=== PATIENT | male | born 1940 | race Caucasian/White ===

== ENCOUNTER 2016-07-25 13:11 | Inpatient (IN) | payer OTHER ==
[~2016-07-25] VITALS: Ht 193 cm; Wt 58.7 kg
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
--- NOTE | 2016-07-25 16:43 | ED ORDER SUMMARY ---
..... Patient: SANA LITTLE OrderSheet [facility] VisitID: [id number] [address] [place] [address] 76y, M Registration Date/Time: 07/25/2016 ORDER SHEET Weight: 59.8 kg (stated) Allergies: anibuse GENERAL ORDERS: Foot 3V Left Urgent (14:27 07/25/2016 Kori GUAMAN) (Ack 14:31 PWeiler ER Tech1) (15:09 LWhalen R.N.) CBC w Diff Urgent (14:27 07/25/2016 Kori GUAMAN) (Ack 14:31 PWeiler ER Tech1) (15:09 LWhalen R.N.) CMP Urgent (14:27 07/25/2016 Kori GUAMAN) (Ack 14:31 PWeiler ER Tech1) (15:09 LWhalen R.N.) Lactate, Serum Urgent (14:27 07/25/2016 Kori GUAMAN) (Ack 14:31 PWeiler ER Tech1) (15:09 LWhalen R.N.) Blood Culture (No) (N/A) Urgent (15:32 07/25/2016 Kori GUAMAN) (Ack 15:37 PWeiler ER Tech1) (16:14 LWhalen R.N.) Sed Rate Urgent (16:51 07/25/2016 Kori GUAMAN) (Ack 16:57 PWeiler ER Tech1) (18:06 LWhalen R.N.) PCT (Procalcitonin) Urgent (16:51 07/25/2016 Kori GUAMAN) (Ack 16:57 PWeiler ER Tech1) (18:06 LWhalen R.N.) CRP Urgent (16:51 07/25/2016 Kori GUAMAN) (Ack 16:57 PWeiler ER Tech1) (18:06 LWhalen R.N.) MEDICATION ORDERS: IV FLUIDS: IV NS : initial bolus 1000 mL (1000 mL/hr), then none - (NOW) (14:27 07/25/2016 Kori GUAMAN) (15:10 LWhalen R.N.) Dilaudid IV 1 mg (HIGH ALERT MEDICATION, NOW) (15:06 07/25/2016 Kori GUAMAN) (15:10 Hector R.N.) Ertapenem IV 1 gm (NOW) (15:38 07/25/2016 Kori GUAMAN) (17:28 LWmichael R.N.) Vancomycin IV 1.5 gm/500 mL (NOW) (15:38 07/25/2016 Kori GUAMAN) (17:04 LWmichael R.N.) Clindamycin IV 900 mg/50mL (NOW) (15:39 07/25/2016 Kori GUAMAN) (16:07 LWmichael R.N.) ORDER SHEET NOTES: [Electronically signed by Harsha Lepe R.N. (10:09 07/26/2016)] [Electronically signed by Tona Kc MD (22:47 07/28/2016)] [Electronically locked/signed by Harsha Lepe R.N. (10:07/26/2016)]
--- NOTE | 2016-07-25 16:43 | ED CLINICAL REPORT ---
Clinical Report - Physicians/Mid Levels [facility] [address] [place] [address] 07/25/2016 13:14 Patient: SANA LITTLE Time Seen: 13:27. Arrived- By private vehicle. Historian- patient. HISTORY OF PRESENT ILLNESS Chief Complaint: LOWER EXTREMITY PAIN and ; PROBLEM IN THE LEFT FOOT. Not relieved by anything- worsened by standing and walking. This started months ago and is still present. Severity is described as being severe. The quality is noted to be (Patient has noticed redness of his toes in general but discoloration in particular of the fourth left toe.). No radiation. Symptoms located in the area of the left foot. The patient has had redness and swelling. He has had difficulty walking. No bladder dysfunction, bowel dysfunction or motor loss. Sensory loss (chronically). ( Patient states that he used to live here; however he moved to [place] to be near his daughter after being diagnosed with cancer. 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 Patient's brother states he placed the patient's primary source of cancers in the lung. Patient was in an assisted living facility and [place]; however he was told he was dying and patient decided to come back to [facility] at that point in time. Patient states that at some point he did do chemotherapy for throat cancer. However he is not currently receiving any treatment for cancer. Patient denies fevers or other symptoms of acute illness.). Patient notes the possibility of an injury (the patient states he does not have good sensation in his feet and that he does not really think he injured himself. Patient is not sure if he had an injury to his left fourth toe the suspects that this may be the case.). Similar symptoms previously: None. Recent medical care: Not recently seen/assessed. REVIEW OF SYSTEMS No cough, chest pain, difficulty breathing, fever or skin rash. No enlarged lymph nodes, neck pain, back pain, headache or blurred vision. No sore throat, abdominal pain, vomiting, diarrhea or black stools. No difficulty with urination or bloody stools. All systems otherwise negative, except as recorded above. PAST HISTORY Problems: Alcohol Intoxication. Depression. Arthritis. Dental Caries. Prostate Cancer. Hypertension. Asthma. Emphysema. Additional Surgeries: Hip Surgery. L arm. Nephrectomy. Medications: OxyCODONE HCl Oral 10 mg, as needed. Morphine Sulfate 15mg extended release. Omeprazole Oral. Levothyroxine Sodium Oral. Montelukast Sodium Oral. Tamsulosin HCl Oral. Allergies: anibuse . SOCIAL HISTORY Smoker- current status unknown. Alcohol use. No drug use. ADDITIONAL NOTES The nursing notes have been reviewed. PHYSICAL EXAM Vital Signs: 07/25/2016 13:34 BP: 126/62. HR: 84. RR: 18. O2 saturation: 100%. Temp: 98.4 F. Have been reviewed. Appearance: Alert. Oriented X3. No acute distress. (Patient appears very thin.). Eyes: Pupils equal, round and reactive to light. Eyes normal inspection. ENT: Nose normal. Neck: Normal inspection. Neck supple. CVS: Normal heart rate and rhythm. Heart sounds normal. Respiratory: No respiratory distress. Breath sounds normal. Abdomen: Soft and nontender. Back: Normal inspection. No tenderness. Skin: Skin intact. Skin warm and dry. Normal skin turgor. Extremities: Left foot. (The patient has general erythema of all of his toes. His fourth toe is gangrenous appearing. It is edematous and has a bluish purple discoloration. The medial aspect is completely eroded and draining.). Extremities otherwise negative. Neuro: No motor deficit. No sensory deficit. (patient is grossly oriented.). LABS, X-RAYS, AND EKG Lt Foot X-ray: No fracture. Normal alignment. No bony lesion, air in the soft tissue or foreign body. Soft tissues normal. Joint spaces normal. Views: 3 view foot series. Technique: good. The X-rays were independently viewed by me and interpreted contemporaneously by me. Prior films were not available for comparison. Laboratory Tests: CBC w Diff: (RIKA: 07/25/2016 15:05) ( MsgRcvd 07/25/2016 15:36) Final results Test Result Flag Units (Reference) WHITE BLOOD COUNT 6.9 K/uL (4.5-11.5) RED BLOOD COUNT 3.14 L M/uL (4.50-5.90) HEMOGLOBIN 9.1 L gm/dL (13.5-17.5) HEMATOCRIT 27.4 L % (41.0-53.0) MEAN CELL VOLUME 87 fL (80-100) MEAN CORPUSCULAR HGB 29 pg (26-34) MEAN CORPUSCULAR HGB CONC 33 g/dL (31-37) RED CELL DISTRIBUTION WIDTH 21.2 H % (11.6-14.8) PLATELET COUNT 232 K/uL (150-400) NEUTROPHIL % 80.8 H % (50-75) LYMPH % 10.2 L % (25-40) MONO % 7.8 % (3-14) EOSINOPHIL % 0.2 % (0-4) BASOPHIL % 1.0 % (0-2) Lactate, Serum: (RIKA: 07/25/2016 15:05) ( ArgRcvd 07/25/2016 15:45) Final results Test Result Flag Units (Reference) LACTIC ACID 1.3 mmol/L (0.4-2.0) CMP: (RIKA: 07/25/2016 15:05) ( MsgRcvd 07/25/2016 15:54) Final results Test Result Flag Units (Reference) GLUCOSE 93 mg/dL (70-110) BUN 12 mg/dL (7-18) CREATININE 0.8 mg/dL (0.6-1.3) Estimated GFR >60 mL/min Estimated GFR- >60 mL/min Note: Persistent reduction over 3 months in eGFR<60 mL/min/1.73 m2 defines CKD. Patients with eGFR values>=60 mL/min/1.73 m2 may also have CKD if evidence ofpersistent proteinuria. Additional information may be foundat www.kidney.org. SODIUM 134 L mmol/L (136-145) POTASSIUM 4.2 mmol/L (3.5-5.1) CHLORIDE 98 mmol/L (98-107) CARBON DIOXIDE 26 mmol/L (21-32) CALCIUM 8.9 mg/dL (8.5-10.1) TOTAL PROTEIN 7.8 g/dL (6.4-8.2) ALBUMIN 3.1 L g/dL (3.3-5.0) BILIRUBIN, TOTAL 0.4 mg/dL (0.0-1.0) ALKALINE PHOSPHATASE 87 U/L (46-116) AST (SGOT) 33 U/L (15-37) ALT (SGPT) 9 L U/L (12-78) . Pulse Oximetry: 07/25/2016 13:34 O2 saturation: 100%. (FIO2 - room air). Interpretation: normal. PROGRESS AND PROCEDURES Course of Care: Patient was evaluated by myself in the emergency department. I did feel the patient should be treated with antibiotics for his left foot cellulitis as well as have a surgical consult for his gangrenous-appearing toe. Lab studies were performed an x-ray of the foot was also done, which was unremarkable. I did feel the patient should be admitted to the hospital and this was arranged. Discussed case with on-call health care provider, (Belinda: will consult on pt, but requests hospitalist admission.). Reviewed test results and need for additional work-up. Agreed upon treatment plan. Health care provider will see patient in hospital. Discussed case with hospitalist, (Paz:). Reviewed test results and need for additional work-up. Agreed upon treatment plan and decision to admit. Health care provider will see patient in ED. Patient and family counseled in person regarding the patient's serious condition, test results, diagnosis and need for admission. Concerns were addressed. Old medical records reviewed. Disposition: Admitted to Acute Care. Condition: stable and serious. CLINICAL IMPRESSION Cellulitis of the left foot, left great toe, left 2nd toe, left 3rd toe, left 4th toe and left 5th toe. (Gangrene, L 4th toe.). (Electronically signed by Tona Kc MD 07/28/2016 22:47)
--- NOTE | 2016-07-25 16:43 | ED ORDER SUMMARY ---
..... Patient: SANA LITTLE OrderSheet [facility] VisitID: [id number] [address] [place] [address] 76y, M Registration Date/Time: 07/25/2016 ORDER SHEET Weight: 59.8 kg (stated) Allergies: anibuse GENERAL ORDERS: Foot 3V Left Urgent (14:27 07/25/2016 Kori GUAMAN) (Ack 14:31 PWeiler ER Tech1) (15:09 LWhalen R.N.) CBC w Diff Urgent (14:27 07/25/2016 Kori GUAMAN) (Ack 14:31 PWeiler ER Tech1) (15:09 LWhalen R.N.) CMP Urgent (14:27 07/25/2016 Kori GUAMAN) (Ack 14:31 PWeiler ER Tech1) (15:09 LWhalen R.N.) Lactate, Serum Urgent (14:27 07/25/2016 Kori GUAMAN) (Ack 14:31 PWeiler ER Tech1) (15:09 LWhalen R.N.) Blood Culture (No) (N/A) Urgent (15:32 07/25/2016 Kori GUAMAN) (Ack 15:37 PWeiler ER Tech1) (16:14 LWhalen R.N.) Sed Rate Urgent (16:51 07/25/2016 Kori GUAMAN) (Ack 16:57 PWeiler ER Tech1) (18:06 LWhalen R.N.) PCT (Procalcitonin) Urgent (16:51 07/25/2016 Kori GUAMAN) (Ack 16:57 PWeiler ER Tech1) (18:06 LWhalen R.N.) CRP Urgent (16:51 07/25/2016 Kori GUAMAN) (Ack 16:57 PWeiler ER Tech1) (18:06 LWhalen R.N.) MEDICATION ORDERS: IV FLUIDS: IV NS : initial bolus 1000 mL (1000 mL/hr), then none - (NOW) (14:27 07/25/2016 Kori GUAMAN) (15:10 LWhalen R.N.) Dilaudid IV 1 mg (HIGH ALERT MEDICATION, NOW) (15:06 07/25/2016 Kori GUAMAN) (15:10 Hector R.N.) Ertapenem IV 1 gm (NOW) (15:38 07/25/2016 Kori GUAMAN) (17:28 LWmichael R.N.) Vancomycin IV 1.5 gm/500 mL (NOW) (15:38 07/25/2016 Kori GUAMAN) (17:04 LWmichael R.N.) Clindamycin IV 900 mg/50mL (NOW) (15:39 07/25/2016 Kori GUAMAN) (16:07 LWmichael R.N.) ORDER SHEET NOTES: [Electronically signed by Harsha Lepe R.N. (10:09 07/26/2016)] [Electronically signed by Tona Kc MD (22:47 07/28/2016)] [Electronically locked/signed by Harsha Lepe R.N. (10:07/26/2016)]
--- NOTE | 2016-07-25 17:00 | DIAGNOSTIC IMAGING REPORT ---
PROCEDURE: XR FOOT 3 VIEWS - LEFT INDICATION: GANGRENE TECHNIQUE: Three views. COMPARISON: None. FINDINGS: Severe osteopenia. There is soft tissue swelling of the fourth toe but no definite bony destruction. Apparent laceration of the second toe and distally. Hardware projects over the ankle. IMPRESSION: 1. Severe osteopenia 2. Left fourth toe soft tissue swelling but no definite evidence of osteomyelitis 3. Laceration of the left second toe distally
--- NOTE | 2016-07-25 17:54 | Progress Note ---
Subjective General Admission History and Physical Examination Patient Name: Portia Griffith Admission Date: July 25, 2016 Primary Care Provider: None Attending Physician: Hebert Mullen M.D. Admitting Physician: Hebert Mullen M.D. Code Status: FULL CODE Room: [facility] Status: , Inpatient SUBJECTIVE Historian: Patient Reliability: Poor Chief Complaint: Left foot pain, swelling, redness History of Present Illness: The patient is a 76-year-old white male with a significant past medical history of renal cell carcinoma status post left nephrectomy, lung CA, throat CA , COPD, hypothyroidism, coronary disease status post myocardial infarction, who presented to [facility] emergency department on the day of admission secondary to complaints of left foot pain in swelling redness of one month duration. [facility] ER evaluation was consistent with cellulitis of left foot with necrotic toe. Secondary to the above, the patient was admitted by Hebert Mullen M.D. for further evaluation and treatment. PAST MEDICAL HISTORY Illnesses: 1. Lung carcinoma 2. Renal cell carcinoma status post left nephrectomy 3. RESEARCH HYDRAULIC ENGINEER neoplasm-status post excision 2015 4. Throat/ENT carcinoma-status post radiation therapy 5. COPD 6. Coronary artery disease-status post myocardial infarction 7. Hypothyroidism 8. Chronic pain 9. Degenerative joint disease Allergies: 1. Antibiotic-type unknown Medications: 1. Flomax 0.4 mg by mouth daily 2. Singular 10 mg by mouth daily 3. Synthroid dosage unknown one by mouth daily 4. Prilosec 20 mg 1 by mouth daily 5. Oxycodone 10 mg 1 by mouth 4 times a day when necessary pain 6. MS Contin 15 mg by mouth twice a day Surgery: 1. Bilateral hip replacement 2. Left leg surgery status post fracture 3. Left nephrectomy secondary to renal cell carcinoma 4. RESEARCH HYDRAULIC ENGINEER neoplasm-status post excision 2015 5. Left arm surgery Injuries: 1. Multiple leg fractures Hospitalizations: 1. For above mentioned surgery and medical problems FAMILY HISTORY Parents: 1. Father, Portia, , 42, drowning accident, 2. Mother, Jessie, , 67, myocardial infarction Siblings: 1. Male, Raymond, living, 70, diabetes mellitus 2. Female, Pura, living, 75, degenerative joint disease Children: 1. The patient has 2 male children and 2 female children living. One female child secondary to suicide/drowning Other significant family history: None SOCIAL HISTORY 1. Marital Status: 2. Bahai: None 3. Education: Fifth grade elementary 4. 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 Occupational health exposures: None HABITS 1. Tobacco: 63 pack years-cigarettes, continues to smoke one half pack per day 2. Drugs: None 3. Alcohol: 2 ounces per month 4. Caffeine: Coffee-4-6 cups per day, soft drinks 2-3 cans per day HEALTH SUPERVISION Item/Test 1. Colonoscopy: 2013 IMMUNIZATIONS: 1. Pneumococcal: No previous 2. Influenza: No previous 3. Tetanus: No previous ADVANCED DIRECTIVES: 1. Living well: Yes 2. POLST: No 3. Code Status: FULL CODE 4. 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 Donor card: No REVIEW OF SYSTEMS Remarkable for those things stated in the history of present illness and past medical history. Seventeen point review of system completed with the following notable findings: General: Weight loss-60 pounds over the past year, weakness, pain Eyes: Decreased visual acuity requiring corrective lenses Skin: Rash, pressure ulcerations, redness left foot with fourth toe skin ulcerations Ears: Ringing, hearing loss Mouth: Edentulous Respiratory: Shortness of breath, asthma/COPD Genitourinary: Increased urination at night, poor urinary stream Endocrine: Hypothyroidism Physical Exam Vital Signs / I&Os Blood pressure: 117/47 mmHg Heart rate: 72/minute Respiratory rate: 16/minute Temperature: 98.2 Fahrenheit orally Pulse oximetry: 100% room air General Appearance Alert, Oriented X3, Cooperative, No acute distress HEENT Atraumatic, PERRLA, EOMI, Moist mucous membranes Lungs Breath sounds equal. No wheezes. Scattered rhonchi. Neck Supple, No JVD Cardiovascular Regular rate and rhythm, Normal S1 and S2, No murmurs, gallops, rubs Abdomen Normal bowel sounds, Soft, No tenderness, No guarding, No rebound Extremities No cyanosis, No clubbing, mild edema present left foot. Erythema present distal one third left foot. Left fourth toe shows medial necrosis, bluish discoloration. No palpable pulses dorsalis pedis or posterior tibial. Pulses were not dopplerable. Skin See above. Areas of erythema left knee. Please see photo documentation Neurological Cranial nerves intact, No lateralizing signs Psych/Mental Status Mental status normal, mood depressed. LAB Results Laboratory Tests 07/25 07/25 07/25 07/25 1520 1520 1505 1505 Chemistry Plasma Sodium (136 - 145 mmol/L) 134 Plasma Potassium (3.5 - 5.1 mmol/L) 4.2 Plasma Chloride (98 - 107 mmol/L) 98 CO2 (Enzymatic) (21 - 32 mmol/L) 26 BUN (7 - 18 mg/dL) 12 Creatinine (0.6 - 1.3 mg/dL) 0.8 Est GFR ( Amer) (mL/min) >60 Est GFR (Non-Af Amer) (mL/min) >60 Glucose (70 - 110 mg/dL) 93 Lactic Acid (0.4 - 2.0 mmol/L) 1.3 Plasma Calcium (8.5 - 10.1 mg/dL) 8.9 Total Bilirubin (0.0 - 1.0 mg/dL) 0.4 AST (15 - 37 U/L) 33 ALT (12 - 78 U/L) 9 Alkaline Phosphatase (46 - 116 U/L) 87 C-Reactive Protein (0.0 - 0.9 mg/dL) 7.5 Total Protein (6.4 - 8.2 g/dL) 7.8 Albumin (3.3 - 5.0 g/dL) 3.1 Procalcitonin Pending Hematology WBC (4.5 - 11.5 K/uL) 6.9 RBC (4.50 - 5.90 M/uL) 3.14 Hgb (13.5 - 17.5 gm/dL) 9.1 Hct (41.0 - 53.0 %) 27.4 MCV (80 - 100 fL) 87 MCH (26 - 34 pg) 29 RDW (11.6 - 14.8 %) 21.2 Neut % (Auto) (50 - 75 %) 80.8 Lymph % (Auto) (25 - 40 %) 10.2 Grand % (Auto) (3 - 14 %) 7.8 Eos % (Auto) (0 - 4 %) 0.2 Baso % (Auto) (0 - 2 %) 1.0 Plt Count, EDTA (150 - 400 K/uL) 232 RBC Morphology (9354 A) PLTS ADQ PUBS MCHC (31 - 37 g/dL) 33 ESR Westergren (0 - 20 mm/hr) > 140 Microbiology Date/Time Procedure - Status Source Growth 07/25 1545 Blood Culture - RECD BLOOD 07/25 1510 Blood Culture - RECD BLOOD Imaging X-Ray (L) Foot IMPRESSION: 1. Severe osteopenia 2. Left fourth toe soft tissue swelling but no definite evidence of osteomyelitis 3. Laceration of the left second toe distally Dictated by: TONO ZHAO MD D: BI;07/25/16 1700 Chest X-Ray IMPRESSION: 1. Hyperinflation. Dictated by: TONO ZHAO MD D: BI;07/25/16 2118 Assessment and Plan Problem List 1. Cellulitis Status Chronic Onset Date Unknown Plan -Patient presents with findings of cellulitis of distal left foot/toes of greater than one month duration. -Patient with necrotic left fourth toe -X-rays show no signs of osteomyelitis -Vancomycin and ertapenem -Surgical consultation obtained with Dr. Bryson Trevino. Case discussed with Dr. Trevino -Pedal pulses not palpable. Minimal monophasic flow found right foot with Doppler. -Ultrasound arterial studies/TASHA ordered bilateral lower extremities -Patient may require revascularization for wound healing. 2. COPD (chronic obstructive pulmonary disease) Status Chronic Onset Date Unknown Plan -Patient with history of COPD. -Continue Singulair -DuoNeb one via nebulizer every 6 hours -Check arterial blood gas -Encourage smoking cessation -Smoking cessation education -NicoDerm patch when necessary 3. Chronic pain Status Chronic Onset Date Unknown Plan -Patient with history of chronic pain -Disabled since age 52 -Unclear whether the patient has run out of his narcotic analgesics at this time which resulted in ER evaluation -Dilaudid when necessary -Obtain previous medical records regarding patient's pain management. 4. Hypothyroidism Status Chronic Onset Date Unknown Plan -Patient with history of hypothyroidism -Currently on thyroid replacement dosage unknown -Attempt to obtain previous medical records -TSH elevated -Synthroid 0.1 mg by mouth daily -Monitor 5. Nicotine dependence Status Chronic Onset Date Unknown Plan -Patient with long-standing history of nicotine dependence-smoking -Currently smokes one half pack cigarettes per day -NicoDerm 21 mg topically daily -Smoking cessation education -Encourage smoking abstinence post discharge 6. CAD (coronary artery disease) Status Chronic Onset Date Unknown Plan -Patient with history of coronary artery disease -States history of myocardial infarction -No recent history of chest pain -The pain previous medical records -Check electrocardiogram -Monitor -Aspirin 81 mg by mouth daily 7. Anemia Status Acute Onset Date Unknown Plan -Patient with findings of mild anemia -H&H 9.1/27.4. MCV 87 -Check iron studies, B12, folate -Check stool Hemoccult -Monitor 8. PAD (peripheral artery disease) Status Chronic Onset Date Unknown Plan -Patient with findings of PAD -Check arterial ultrasound/TASHA lower extremities -Surgical consultation 9. Necrosis of toe Plan -See above -Probable significant arterial disease -Surgical consultation Dr. Trevino Current status: Fair, unstable Anticipated discharge date: Anticipated discharge in 4-5 days Anticipated [facility] prison facility Patient care time: Time spent in chart review, patient interview, physical exam, CPOE, and care documentation: 70 minutes Visit to patient today: 2 Complexity of care: High DVT prophylaxis: Heparin 5000 units subcutaneous every 8 hours GI prophylaxis: Protonix 40 mg by mouth daily Initial patient evaluation: Emergency department Advance care plan: Patient wishes to be placed on FULL CODE STATUS. Advanced care plan documented. See advance care note. The patient gives a history of multiple neoplasms in the past. History is schedule regarding previous workup and treatment of these neoplasms. We'll attempt to obtain records in a.m. from previous medical facilities/providers. E&M Codes Admission: Inpt-High/[id number]
--- NOTE | 2016-07-25 18:11 | Progress Note ---
Subjective General ADVANCED CARE PLAN History of Present Illness The patient is a 76-year-old white male with a significant past medical history of renal cell carcinoma status post left nephrectomy, lung CA, throat CA , COPD, hypothyroidism, coronary disease status post myocardial infarction, PAD who presented to [facility] emergency department on the day of admission secondary to complaints of left foot pain in swelling redness of one month duration. [facility] ER evaluation was consistent with cellulitis of left foot with necrotic fourth toe. Secondary to the above, the patient was admitted by Hebert Mullen M.D. for further evaluation and treatment. For other history present illness, past medical history, family history, social history, review of systems, and admission physical examination please see the patient's history and physical examination and ER visit note in the patient's medical record. A discussion was undertaken with the patient regarding previous advance care arrangements/decisions. The following advanced directives were noted by the patient and discussed with me at the time of admission. ADVANCED DIRECTIVES: 1. Living well: Yes 2. POLST: No 3. CODE STATUS: FULL CODE 4. 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 Donor card: No The patient has expressed interest in pursuing full resuscitative efforts during his hospital stay should he develop cardiopulmonary arrest. He wishes to undergo full respiratory support in the event of respiratory distress. The patient's wishes were documented in the chart and orders regarding the patient's wishes entered into the [employer] CPOE system. The "Advance Care Plan Document" was not distributed to patient to discuss with his family. Less than 30 minutes was spent in performing the above tasks and documentation of the patient's advanced care plan.
--- NOTE | 2016-07-25 18:11 | Progress Note ---
Subjective General ADVANCED CARE PLAN History of Present Illness The patient is a 76-year-old white male with a significant past medical history of renal cell carcinoma status post left nephrectomy, lung CA, throat CA , COPD, hypothyroidism, coronary disease status post myocardial infarction, PAD who presented to [facility] emergency department on the day of admission secondary to complaints of left foot pain in swelling redness of one month duration. [facility] ER evaluation was consistent with cellulitis of left foot with necrotic fourth toe. Secondary to the above, the patient was admitted by Hebert Mullen M.D. for further evaluation and treatment. For other history present illness, past medical history, family history, social history, review of systems, and admission physical examination please see the patient's history and physical examination and ER visit note in the patient's medical record. A discussion was undertaken with the patient regarding previous advance care arrangements/decisions. The following advanced directives were noted by the patient and discussed with me at the time of admission. ADVANCED DIRECTIVES: 1. Living well: Yes 2. POLST: No 3. CODE STATUS: FULL CODE 4. 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 Donor card: No The patient has expressed interest in pursuing full resuscitative efforts during his hospital stay should he develop cardiopulmonary arrest. He wishes to undergo full respiratory support in the event of respiratory distress. The patient's wishes were documented in the chart and orders regarding the patient's wishes entered into the [employer] CPOE system. The "Advance Care Plan Document" was not distributed to patient to discuss with his family. Less than 30 minutes was spent in performing the above tasks and documentation of the patient's advanced care plan.
[2016-07-25 18:52] VITALS: BP 117/47
--- NOTE | 2016-07-25 19:12 | NUR ---
PT ADMITTED TO ROOM 211 VIA THE ED. HE WAS ABLE TO SCOOT HIMSELF FROM THE GURNEY TO THE BED. IV IS RUNNING IN THE RFA. HE IS HUNGRY SO HE IS EATING A SANDWICH, RADIOLOGY HERE TO DO CXR, RT HERE TO DO ABG. FULL PHYSICAL ASSESSMENT DEFERRED TO ONCOMING RN. RATES PAIN 9/10 IN L FOOT, MEDICATED WITH 1MG IV DILAUDID PER ORDER. BED IN LOWEST POSITION, CALL LIGHT WITHIN REACH.
--- NOTE | 2016-07-25 21:18 | DIAGNOSTIC IMAGING REPORT ---
PROCEDURE: XR CHEST 1 VIEW INDICATION: COPD, Lung CA TECHNIQUE: Portable AP view 06:21 p.m. COMPARISON: None. FINDINGS: Hyperinflation. Heart and mediastinum are normal. Thorax is normal. IMPRESSION: 1. Hyperinflation.
[2016-07-25 23:14] VITALS: BP 122/69
[2016-07-26 03:12] VITALS: BP 127/51
--- NOTE | 2016-07-26 03:32 | NUR ---
Pt has had pain 9-10/10 to L foot. Dilaudid is effective. Photos taken of L foot, coccyx, & wounds to L knee. Pt is emaciated. Turning q2h due to bony prominences & high risk for pressure ulcers. Waffle mattress on & waffle boots placed. Hasn't had BM in 7 days. Started on bowel protocol. Given prune juice. Taking PO well. Has had some snacks. Plan is arterial US of BLE today.
--- NOTE | 2016-07-26 05:34 | NUR ---
Mepilex applied to sacrum/coccyx for pressure ulcer prevention.
[2016-07-26 06:55] VITALS: BP 121/66
--- NOTE | 2016-07-26 07:56 | NUR ---
d/w Dr. Mullen that pt had c/o "needing to pee" & "needing pee pill" Realized Flomax start date defaulted to tonight vs last hannah & so pt missed dose. Pharm retimed to give 1st dose now (ok per Dr. Mullen). Bladder scan showed 574, but shortly after pt voided 200. Dr. Mullen aware & will monitor for now. Report to day RN with above issue reported to monitor.
--- NOTE | 2016-07-26 08:48 | NUR ---
In to see patient with Dr. Trevino, pt very cachectic, with height of 6'4" and 122 pounds. Pt with what looks like a healed pressure injury to the coccyx, it is a dry, scab area now. Pt also with dry scabs to left knee area x2, and necrotic appearing 4th toe on the left foot. No palpable pulses to bilat feet. Dr. Trevino able to palpate groin pulses. Pt awaiting venous doppler/TASHA testing today, per Dr. Trevino will await results of that and proceed from there, Pt states has been smoking but currently trying to quit. Received orders to try and place a silver alginate dressing over the 4th toe, and foam on areas on knees, per patient he is unable to tolerate anyone touching the toe, and does not want a dressing placed at this time. Pt a very high risk for pressure injury, Has a WAFFLE mattress in place, WAFFLE boots attempted, but patient did not tolerate and were dc'd, so now pts heels, which have barely blanchable redness are being elevated by folding WAFFLE mattress under and propping up with wedge as well. [place] guard in place to offload blankets from foot, as patient is unable to tolerate and pressure at all . Foam dressings placed on scabs on left knee, Boder sacrum foam placed on coccyx, vigilent repositioning taking place, and awaiting nutrition consult. Pt incontinent as well, and using barrier cloths with 3.6% Dimethacone for protection for gently cleaning afterwards, pt also on disposable absorbant pad and briefs being used only as necessary. Will continue to monitor closely.
--- NOTE | 2016-07-26 09:14 | NUR ---
Vancomycin per Pharmacy S/O: Pt with cellulitis and necrotic 4th toe is ordered Vancomycin to be dosed by pharmacy. Pt is also s/p left nephrectomy. Ht: 76 inches Wt: 55.8 Kg Scr: 0.7 Est CrCl: 61ml/min A: Estimated Vancomycin levels of 27/12.5 on Vanco 750 mg Q 12 H P: Draw trough 0830 on 07/27/16
--- NOTE | 2016-07-26 10:00 | NUR ---
DR VARELA TO ASSESS PT AND NECROTIC TOE. STARTED BOWEL PROTOCOL. PT STATED HE NOT HAD A BM IN 1 WEEK. WAITING FOR ARTERIAL US OF HIS LLE. WCTM.
--- NOTE | 2016-07-26 10:40 | CONSULTATION REPORT ---
DATE OF CONSULTATION: 07/26/2016 CHIEF COMPLAINT: 1. Left foot pain and redness. HISTORY OF PRESENT ILLNESS: The patient is a 76-year-old man with a painful left foot associated with recent redness. This patient has had cellulitis in the left foot and was seen in the emergency department. He has had pain and swelling and redness during the last month or so, which has been of a more gradual onset. The patient is currently a smoker but has not had previous known peripheral vascular disease on a diagnosis. He does have coronary artery disease. MEDICAL/SURGICAL HISTORY: Past medical history of lung carcinoma, throat carcinoma, renal cell with left nephrectomy, central nervous system cancer excised in 2016, COPD, coronary artery disease, [place], hypothyroidism, DJD, chronic pain. Past surgeries are bilateral hip replacements, left leg ORIF, left nephrectomy, craniotomy in 2016 and left arm surgery. MEDICATIONS: 1. Flomax 0.4 mg daily. 2. Singulair 10 mg daily. 3. Synthroid, dose unknown. 4. Oxycodone 10 mg q.i.d. p.r.n. 5. MS Contin 15 mg b.i.d. ALLERGIES: 1. NONE DESCRIBED OTHER THAN ANTABUSE. SOCIAL HISTORY: The patient is . He is disabled and nonambulatory. 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 The patient smokes about 1/2 pack per day and has smoked his whole life. He does not take alcohol. FAMILY HISTORY: Mother at 67 from [place]. Father of drowning at age 42. He has a brother with diabetes. REVIEW OF SYSTEMS: A multipoint review of systems was obtained by Dr. Mullen using questionnaire and through his own questioning. This was reviewed. He has had a generalized weight loss of about 60 pounds over the last year, associated with generalized weakness and pain. He has been altered vision, various rashes and ulcerations, especially ulcerations on his left foot, hearing loss, loss of teeth, chronic shortness of breath and increased urinary frequency. PHYSICAL EXAMINATION: GENERAL: He is alert and cooperative to examination. He responds appropriately to questioning. He appears emaciated, cachectic and chronically bedridden. EXTREMITIES: His lower extremities are atrophic with marked muscle loss in the thighs and lower legs. HEENT: His ears and nose demonstrate no gross external lesions. His eyes are equal. He is anicteric. NECK: Without palpable masses or thyromegaly. I did not hear any bruits. CHEST: Clear to auscultation. HEART: Regular, without murmur or gallop. ABDOMEN: Reveals no localized tenderness. LOWER EXTREMITY: Reveals a purple left fourth toe as well as a red forefoot. The foot is cool from on the lower half, but is warmer around by the heel. The right foot does not demonstrate any acute changes, though it also has no pulses. Palpation reveals no palpable pedal pulses, however, the groin pulses are easily palpable. Radial pulses are also palpable. IMPRESSION: 1. Ischemic necrosis of left foot. 2. Nonambulatory patient with marked cachexia and weight loss. 3. Chronic cigarette dependency. 4. Multiple medical problems and numerous previous malignancies. PLAN: I requested a lower extremity noninvasive Doppler exam. It appears that this patient has ischemic gangrene of the toe and is unlikely to benefit from aggressive limb salvage as he is nonambulatory. Note also on examination his thighs are contracted and will not straighten out past about 45 degrees and his knees are also on flexion contracture. In this situation an above-knee amputation may be the only reasonable treatment, though, in the meantime, we will use some bacterial inhibiting Silver based dressings and some IV antibiotics to reduce the cellulitis and await further vascular studies. In the event that he has a very easy fixable lesion such as focal superficial femoral artery stenosis, this maybe worth an endovascular intervention, but aggressive limb salvage is not reasonable under the circumstances. I also talked to the patient about his smoking habits and made him aware that smoking and peripheral vascular disease are incompatible with prolonged survival.
[2016-07-26 10:53] VITALS: BP 119/55
--- NOTE | 2016-07-26 11:15 | NUR ---
per RN pt not appropriate for PT evaluation today. Will ck bk 5-2
--- NOTE | 2016-07-26 11:37 | NUR ---
NUTRITION ASSESSMENT: S: Pt admitted with dx/o necrosis left foot. PMH includes: lung and throat cancer, renal cancer with left nefphrectomy, central nervous system cancer, COPD, CAD, [place], hypothyroidism, DJD, chronic pain, hip replacements, craniotomy in 2016. Pt appears emaciated, per MD notes he is bedridden with marked muscle loss. Spoke with MD, suggested d/c cardiac diet, MD would like to leave him on this diet 2/2 dx/hx, but agreeable to boost between meals, desean cortes q meal.
--- NOTE | 2016-07-26 12:32 | Progress Note ---
Subjective General still has pain in left foot but controlled, no fever but has chills, no dyspnea, no chest pain, patient is aware of his infection in left foot Physical Exam General Appearance No acute distress Lungs Normal exam (decreased air exchange in base) Cardiovascular Normal S1 and S2 Extremities erythema in lef foot with necrosis in left first toe LAB Results Laboratory Tests 07/26 07/25 07/25 0510 1804 1535 Blood Gas Sample Site RB Total CO2 (24.0 - 30.0 mmol/L) 25.1 ABG pH (7.35 - 7.45) 7.45 ABG pCO2 at Pt Temp (35 - 45 mmHg) 34.5 ABG pO2 at Pt Temp (60.0 - 80.0 mmHg) 98.8 ABG HCO3 (20.0 - 26.0 mmol/L) 24.0 ABG O2 Sat Calc/Meaghan (95.1 - 100.0 %) 98.8 ABG Base Excess (-6.0 - -6.0 mmol/L) 0.0 ABG Reduced Hgb (%) 1.2 ABG Carboxyhemoglobin (0.5 - 1.5 %) 2.0 ABG Methemoglobin (0.4 - 1.5 %) 0.0 Som Test NO Other Total Hgb (14.0 - 18.0 g/dL) 8.2 A-a O2 Gradient (7.0 - 14.0 mmHg) 12.6 Hgb O2 Saturation (95.0 - 100.0 %) 96.8 Temperature (C) 37 O2 Liters/Min (0 - 20 L/MIN) 0 Vent Mode RA FiO2 (20 - 101 %) 21 Chemistry Plasma Sodium (136 - 145 mmol/L) 138 Plasma Potassium (3.5 - 5.1 mmol/L) 4.2 Plasma Chloride (98 - 107 mmol/L) 104 CO2 (Enzymatic) (21 - 32 mmol/L) 25 BUN (7 - 18 mg/dL) 12 Creatinine (0.6 - 1.3 mg/dL) 0.7 Est GFR ( Amer) (mL/min) >60 Est GFR (Non-Af Amer) (mL/min) >60 Glucose (70 - 110 mg/dL) 93 Plasma Calcium (8.5 - 10.1 mg/dL) 8.1 TSH 3rd Generation (0.30 - 3.74 uIU/mL) 9.052 Hematology WBC (4.5 - 11.5 K/uL) 5.7 RBC (4.50 - 5.90 M/uL) 3.05 Hgb (13.5 - 17.5 gm/dL) 8.6 Hct (41.0 - 53.0 %) 26.4 MCV (80 - 100 fL) 87 MCH (26 - 34 pg) 28 RDW (11.6 - 14.8 %) 21.2 Neut % (Auto) (50 - 75 %) 89.6 Lymph % (Auto) (25 - 40 %) 5.0 [place] % (Auto) (3 - 14 %) 1.9 Eos % (Auto) (0 - 4 %) 3.2 Baso % (Auto) (0 - 2 %) 0.3 Plt Count, EDTA (150 - 400 K/uL) 209 RBC Morphology (76742 A) HYPOCHROMIA +2 PUBS MCHC (31 - 37 g/dL) 33 07/25 07/25 07/25 07/25 1535 1520 1520 1510 Chemistry Iron (35 - 150 ug/dL) 29 TIBC (260 - 445 ug/dL) 253 Iron Saturation (15 - 50 %) 11 C-Reactive Protein (0.0 - 0.9 mg/dL) 7.5 B-Natriuretic Peptide (5 - 100 pg/ml) 171 Procalcitonin (0 - 0.5 ng/mL) <0.5 Hematology ESR [place] (0 - 20 mm/hr) > 140 Urines Urine Color YELLOW Urine Appearance CLEAR Urine pH (5.0 - 8.0) 6.5 Ur Specific [place] (1.010 - 1.030) 1.010 Urine Protein (NEGATIVE) NEGATIVE Urine Ketones (NEGATIVE) NEGATIVE Urine Blood (NEGATIVE) 1+ Urine Nitrite (NEGATIVE) NEGATIVE Urine Bilirubin (NEGATIVE) NEGATIVE Urine Urobilinogen (0.2 - 1.0 EU/dL) 0.2 Ur Leukocyte Esterase (NEGATIVE) NEGATIVE Urine RBC (0 - 1 rbc/hpf) 10-25 Urine WBC (0 - 1 wbc/hpf) 1-3 Ur Epithelial Cells (0 - 5 EPI/hpf) 0-1 Urine Bacteria (NONE SEEN) NONE SEEN Urine Glucose (NEGATIVE) NEGATIVE Urine Comment CULT NOT INDICATED 07/25 07/25 07/25 1510 1505 1505 Chemistry Plasma Sodium (136 - 145 mmol/L) 134 Plasma Potassium (3.5 - 5.1 mmol/L) 4.2 Plasma Chloride (98 - 107 mmol/L) 98 CO2 (Enzymatic) (21 - 32 mmol/L) 26 BUN (7 - 18 mg/dL) 12 Creatinine (0.6 - 1.3 mg/dL) 0.8 Est GFR ( Amer) (mL/min) >60 Est GFR (Non-Af Amer) (mL/min) >60 Glucose (70 - 110 mg/dL) 93 Lactic Acid (0.4 - 2.0 mmol/L) 1.3 Plasma Calcium (8.5 - 10.1 mg/dL) 8.9 Total Bilirubin (0.0 - 1.0 mg/dL) 0.4 AST (15 - 37 U/L) 33 ALT (12 - 78 U/L) 9 Alkaline Phosphatase (46 - 116 U/L) 87 Total Protein (6.4 - 8.2 g/dL) 7.8 Albumin (3.3 - 5.0 g/dL) 3.1 Vitamin B12 (211 - 946 pg/mL) 567 Folate (>3.0 ng/mL) 7.8 Coagulation INR (0.8 - 1.2) 0.9 APTT (24 - 34 SECONDS) 60 Hematology WBC (4.5 - 11.5 K/uL) 6.9 RBC (4.50 - 5.90 M/uL) 3.14 Hgb (13.5 - 17.5 gm/dL) 9.1 Hct (41.0 - 53.0 %) 27.4 MCV (80 - 100 fL) 87 MCH (26 - 34 pg) 29 RDW (11.6 - 14.8 %) 21.2 Neut % (Auto) (50 - 75 %) 80.8 Lymph % (Auto) (25 - 40 %) 10.2 [place] % (Auto) (3 - 14 %) 7.8 Eos % (Auto) (0 - 4 %) 0.2 Baso % (Auto) (0 - 2 %) 1.0 Plt Count, EDTA (150 - 400 K/uL) 232 RBC Morphology (9354 A) PLTS ADQ PUBS MCHC (31 - 37 g/dL) 33 Microbiology Date/Time Procedure - Status Source Growth 07/25 1545 Blood Culture - RECD BLOOD 07/25 1510 Blood Culture - RECD BLOOD Assessment and Plan Problem List 1. Cellulitis Status Chronic Onset Date Unknown Plan continue Louann and Samantha, had duppler of lower extr, surgery on consult 2. PAD (peripheral artery disease) Status Chronic Onset Date Unknown Plan as above 3. COPD (chronic obstructive pulmonary disease) Status Chronic Onset Date Unknown Plan stable continue current treatment 4. Chronic pain Status Chronic Onset Date Unknown Plan continue pain medication
--- NOTE | 2016-07-26 13:40 | NUR ---
Pt not able to tolerate lying on either side. Due to prior bilateral hip replacements. Position with pillows between knees and using wedges and pillows to keep pressure off coccyx and sacrum. vigilant nisha care and positioning taking place. Will continue to monitor and report to on-coming shift.
[2016-07-26 14:32] VITALS: BP 125/56
--- NOTE | 2016-07-26 16:51 | DIAGNOSTIC IMAGING REPORT ---
PROCEDURE: US ART LOWER EXT WITH TASHA-B/L INDICATION: PAD TECHNIQUE: Color Doppler duplex imaging of the lower extremity arterial system was performed bilaterally. Pre exercise ABIs were acquired. The patient was unable to exercise. COMPARISON: None. FINDINGS: RIGHT LOWER EXTREMITY: ABIs: Pre exercise posterior tibial: . Pre exercise dorsalis pedis: . VESSELS/ WAVEFORMS: Moderate calcification of the common femoral artery causing mild subjective luminal stenosis without significant distal velocity elevation. Scattered calcification throughout the superficial femoral artery, and heavy mixed calcified and noncalcified plaque in the popliteal artery causing moderate luminal stenosis. Monophasic arterial flow throughout the entire right lower extremity. Anterior tibial artery wave form proximally is blunted. RIGHT LOWER EXTREMITY PEAK SYSTOLIC VELOCITIES: External iliac: 186 cm/second. Common femoral artery: 126 cm/second. Profunda femoral artery: 102 cm/second. Proximal superficial femoral artery: 134 cm/second. Mid superficial femoral artery: 310 cm/second. Distal superficial femoral artery: 372 cm/second. Popliteal artery: 105 cm/second. Proximal posterior tibial artery: 38 cm/second. Proximal anterior tibial artery: Eight cm/second. Peroneal artery: 29 cm/second. Distal posterior tibial artery: 39 cm/second. Dorsalis pedis artery: 17 cm/second. LEFT LOWER EXTREMITY: ABIs: Pre exercise posterior tibial: . Pre exercise dorsalis pedis: . VESSELS/ WAVEFORMS: Turbulent, monophasic arterial wave form in the external iliac artery, common femoral artery, profunda femoral artery. Heavy calcification in the common and proximal superficial femoral arteries. This results in a significant velocity elevation in the mid superficial femoral artery. Distal SFA waveform is monophasic blunted. Extensive mixed calcified and noncalcified popliteal artery atherosclerosis. The left anterior tibial artery is thrombosed. There is a very blunted, barely phasic arterial flow in the peroneal and posterior tibial arteries. LEFT LOWER EXTREMITY PEAK SYSTOLIC VELOCITIES: External iliac: 200 cm/second. Common femoral artery: 181 cm/second. Profunda femoral artery: 220 cm/second. Proximal superficial femoral artery: 194 cm/second. Mid superficial femoral artery: 511 cm/second. Distal superficial femoral artery: 81 cm/second. Popliteal artery: 102 cm/second. Proximal posterior tibial artery: 30 cm/second. Proximal anterior tibial artery: Zero cm/second. Peroneal artery: 30 cm/second. Distal posterior tibial artery: Zero cm/second. Dorsalis pedis artery: 28 cm/second. IMPRESSION: 1. Thrombosed left anterior tibial artery beginning in the proximal aspect. No reconstitution of the dorsalis pedis. 2. Heavy atherosclerosis in the proximal left lower extremity with a hemodynamically significant stenosis in the proximal left superficial femoral artery. 3. Monophasic arterial flow diffusely suggests diffuse calcific atherosclerosis. 4. Extensive atherosclerosis in the popliteal artery bilaterally. No definite aneurysm. 5. Bilateral lower extremity arterial runoff is recommended for further evaluation (CT, MRI, or conventional). 5. Findings called to Dr. Mullen.
[2016-07-26 18:00] VITALS: BP 124/63
[2016-07-26 22:28] VITALS: BP 111/59
--- NOTE | 2016-07-26 23:47 | NUR ---
DID WOUND CARE TODAY ON PATIENT. CHANGED BANDAGES.
[2016-07-27 02:38] VITALS: BP 119/64
[2016-07-27 06:45] VITALS: BP 117/70
--- NOTE | 2016-07-27 09:57 | Progress Note ---
Subjective General still has pain in left leg, no fever or chills, breathing is stable, otherwise doing oK Physical Exam Vital Signs / I&Os Vital Signs Date Time Temp Pulse Resp B/P Pulse O2 O2 Flow FiO2 Ox Delivery Rate 07/27 0645 98.2 84 18 117/70 98 Room Air 07/27 0238 98.2 84 18 119/64 98 Room Air 07/26 2350 Room Air 07/26 2228 98.6 86 18 111/59 97 Room Air 07/26 1800 98.2 92 18 124/63 99 Room Air 07/26 1432 97.7 78 18 125/56 99 Room Air 07/26 1053 98.2 83 18 119/55 99 Room Air I&O 07/27 0000 07/26 1600 07/26 0800 Intake Total 605 570 479 Output Total 575 2760 754 Balance 26 580 -385 General Appearance Mild distress Lungs Normal exam (decreased air exchange all ove) Cardiovascular Normal S1 and S2 Abdomen Normal bowel sounds, Soft, No tenderness Extremities necrotic toes in left leg, tender in palpation LAB Results Laboratory Tests 07/27 07/27 0835 0505 Chemistry Plasma Sodium (136 - 145 mmol/L) 139 Plasma Potassium (3.5 - 5.1 mmol/L) 4.6 Plasma Chloride (98 - 107 mmol/L) 105 CO2 (Enzymatic) (21 - 32 mmol/L) 27 BUN (7 - 18 mg/dL) 10 Creatinine (0.6 - 1.3 mg/dL) 0.8 Est GFR ( Amer) (mL/min) >60 Est GFR (Non-Af Amer) (mL/min) >60 Glucose (70 - 110 mg/dL) 95 Plasma Calcium (8.5 - 10.1 mg/dL) 8.3 Hematology WBC (4.5 - 11.5 K/uL) 5.3 RBC (4.50 - 5.90 M/uL) 2.99 Hgb (13.5 - 17.5 gm/dL) 8.3 Hct (41.0 - 53.0 %) 25.8 MCV (80 - 100 fL) 86 MCH (26 - 34 pg) 28 RDW (11.6 - 14.8 %) 22.2 Neut % (Auto) (50 - 75 %) 82.8 Lymph % (Auto) (25 - 40 %) 7.2 [place] % (Auto) (3 - 14 %) 5.8 Eos % (Auto) (0 - 4 %) 3.8 Baso % (Auto) (0 - 2 %) 0.4 Plt Count, EDTA (150 - 400 K/uL) 228 RBC Morphology (34404 A) HYPOCHROMIA +2 PUBS MCHC (31 - 37 g/dL) 32 Toxicology Vancomycin Trough (10.0 - 20.0 ug/mL) 12.8 Assessment and Plan Problem List 1. Cellulitis Status Chronic Onset Date Unknown Plan continue Vancomysin 2. PAD (peripheral artery disease) Status Chronic Onset Date Unknown Plan Doppler study was noted, diffuse aterosclrosis and trombosis, not a candidate for Stent, might need AKA 3. COPD (chronic obstructive pulmonary disease) Status Chronic Onset Date Unknown Plan stable continue current management 4. Anemia Status Acute Onset Date Unknown Plan stable 5. Chronic pain Status Chronic Onset Date Unknown Plan on Dilaudid
--- NOTE | 2016-07-27 10:17 | NUR ---
ALERT PT WHO HAS L FOOT 4TH TOE NECROSIS. PTs SKIN IS VERY SENSITIVE TO PRESSURE. DRESSINGS ARE INTACT TO KNEES AND TO COCCYX. MEDICATED FOR PAIN L FOOT. IV INFUSING INTO LFA. PT IS NOT ABLE TO TOLERATE LYING ON L SIDE BECAUSE OF HIS LLE PAIN (PER PT). HEELS OFF LOADED PER WAFFLE MATTRESS.
--- NOTE | 2016-07-27 10:42 | NUR ---
NUTRITION FOLLOW UP NOTE: Pt diet changed to High Calorie High Protein mechanical soft with mighty shakes q meal, BOOST TID between meals, Zinc with vit C to help promote wound healing. Pt ate ~25% this am, and ~40-50% at meals yesterday (07/26), pt does accept boost shakes and ice cream as well. Per MD notes, pt may possibly need AKA? Rev'd meds and labs. Pt continues at high nutritional risk, RD to continue to follow closely.
[2016-07-27 11:33] VITALS: BP 112/66
--- NOTE | 2016-07-27 11:41 | NUR ---
pt unable to be seen d/t high census. Will ck bk 5-3
[2016-07-27 14:35] VITALS: BP 101/56
--- NOTE | 2016-07-27 16:13 | NUR ---
PT HAS BEEN REPOSITIONED WITH HEELS FLOATING. PT HAS DIFFICULTY KEEPING HEELS OFF OF BED EVEN WHEN 2 PILLOWS APPLIED AND WAFFLE MATTRESS TURNED OVER. DRESSINGS INTACT. BROTHER IS AT BEDSIDE WAITING FOR DR VARELA TO TALK TO THEM. IV IS PATENT AND PT HAS BEEN MEDICATED FOR 7/10 LLE PAIN. PT HAS BEEN VOIDING WELL PER URINAL.
--- NOTE | 2016-07-27 18:21 | NUR ---
DR VARELA ATTEMPTED TO CALL PTS BROTHER AT NUMBER LISTED ON FACE SHEET TO UPDATE HIM ON PLAN OF CARE. THERE WAS NO ANSWER AND VOICE MAILBOX WAS FULL. I WILL NOTIFY THE PT.
[2016-07-27 18:52] VITALS: BP 109/57
--- NOTE | 2016-07-27 19:58 | NUR ---
Patient was encouraged to do deep breathing exercises. He confirms that he has not moved his bowels for so many days now. He is able to reposition himself in bed and is reluctant to currently taking Acetaminophen.
[2016-07-27 22:47] VITALS: BP 101/50
--- NOTE | 2016-07-27 23:30 | NUR ---
Renewed Mepilex dressings on the L knee, R knee, both hips and the coccyx.
[2016-07-28 02:30] VITALS: BP 102/55
[2016-07-28 06:27] VITALS: BP 120/63
--- NOTE | 2016-07-28 08:48 | Progress Note ---
Subjective General Pt. has no new complaints. He reports he has not ambulated in over 5 years. Physical Exam Vital Signs / I&Os Vital Signs Date Time Temp Pulse Resp B/P Pulse O2 O2 Flow FiO2 Ox Delivery Rate 07/28 0627 98.2 72 14 120/63 96 Room Air 07/28 0230 98.2 80 13 102/55 98 Room Air 07/27 2247 98.2 80 13 101/50 98 Room Air 07/27 2012 Room Air 07/27 1852 99.0 93 18 109/57 98 / 1435 98.6 76 16 101/56 99 / 1133 98.2 82 16 112/66 98 Room Air I&O 07/27 0800 07/27 1600 07/28 0000 Intake Total 1365 1890 840 Output Total 1675 1350 570 Balance -310 540 270 General Appearance Cooperative, Pt. was sleeping but when awake conversed appropriately and seemed to understand what was being explained to him. Extremities The left foot looks similar with a gangrenous toe and ischemic forefoot. All muscles are atrophic and he has sores on his knee area. The femur is tender but stable (he reports an old fracture there) Assessment and Plan Problem List 1. PAD (peripheral artery disease) Status Chronic Onset Date Unknown 2. Necrosis of toe Plan I recommended a left AK amputation as he is not ambulatory and does not warrant vascular intervention for limb salvage. I explained his situation to him and he agrees to this procedure. I called his brother yesterday but did not reach him. I left word with the nurses to call me if he comes in to visit.
--- NOTE | 2016-07-28 09:11 | NUR ---
In to see patient with Dr. Trevino, redness somewhat decreased in left lower extremity, but 4rth toe necrotic, possibly spreading. is going to schedule left AKA for tomorrow, call placed to brother Rainer, arranged for him to be here at [address] Trevino about procedure. Assessment of patients sacrum/coccyx is lightly blanchable very erythematis, evidence of old healed pressure injury to coccyx, still intact, dry skin in area, due to extreme malnutrition and bony prominences, a large (9x9) sacrum foam dressing was placed on sacrum/coccyx. Propyhlactic foam placed on bilat hips and also on bilat knees for old abrasions. right foot heel is very erythematous, pt has refused WAFFLE boot prior, but with his great height it is difficult to keep his heels elevated. Educated patient of importance of keeping heel elevated to prevent pressure injury, and pt agreeable to placing WAFFLE BOOT again. Pt given complete bedbath and applied moisturizer, also washed hair and changed gown. Currently is have swallow eval, will continue to monitor.
--- NOTE | 2016-07-28 09:43 | NUR ---
Pt seen for a swallow evaluation d/t RN report that the pt had difficulty swallowing pills with water. Pt admitted with cellulitis of the distal foot/toes for more than one month. Pending AK amputation. Hx sig for lung cancer and throat cancer s/p radiation tx approx 7 years ago. The pt has top dentures, no bottom dentures. OME revealed dry mouth, which the pt reported is the reason he has difficulty swallowing pills. The pt could only tolerate upright positioning for approx 15 minutes d/t leg and back pain. The pt tolerated trials of soft textures and sips of water from a straw w/o overt s/s of aspiration. Reduced laryngeal excursion was felt to palpation, but swallow reflex was prompt. Pt demonstrates mild dysphagia, but d/t difficulty sitting upright for long he is at an increased risk of aspiration. REC: mechanical soft textures with added sauces and gravies for moisture and thin liquids. Only feed pt when he is positioned upright. Rec more frequent smaller meals to accommodate difficulty sitting upright. Meds whole in applesauce.
--- NOTE | 2016-07-28 09:56 | Progress Note ---
Subjective General still has pain in left foot/leg, no fever little chills, breathing fine, was not able to sleep last night, too much wakening, agreeble alie BUTTS wonders if he can get power \wheelchair after Physical Exam Vital Signs / I&Os Vital Signs Date Time Temp Pulse Resp B/P Pulse O2 O2 Flow FiO2 Ox Delivery Rate 07/28 0627 98.2 72 14 120/63 96 Room Air 07/28 0230 98.2 80 13 102/55 98 Room Air 07/27 2247 98.2 80 13 101/50 98 Room Air 07/27 2012 Room Air 07/27 1852 99.0 93 18 109/57 98 07/27 1435 98.6 76 16 101/56 99 07/27 1133 98.2 82 16 112/66 98 Room Air I&O 07/28 0000 07/27 1600 07/27 0800 Intake Total 840 1890 1365 Output Total 570 1350 1675 Balance 270 540 -310 General Appearance Mild distress Lungs Normal exam (decreased air exchange bases) Cardiovascular Regular rate and rhythm, Normal S1 and S2 Abdomen Normal bowel sounds, Soft, No tenderness Extremities necrotic 4th toe erythema LAB Results Laboratory Tests 07/28 509 Chemistry Plasma Sodium (136 - 145 mmol/L) 136 Plasma Potassium (3.5 - 5.1 mmol/L) 4.6 Plasma Chloride (98 - 107 mmol/L) 105 CO2 (Enzymatic) (21 - 32 mmol/L) 26 BUN (7 - 18 mg/dL) 10 Creatinine (0.6 - 1.3 mg/dL) 0.8 Est GFR ( Amer) (mL/min) >60 Est GFR (Non-Af Amer) (mL/min) >60 Glucose (70 - 110 mg/dL) 100 Plasma Calcium (8.5 - 10.1 mg/dL) 8.1 Hematology WBC (4.5 - 11.5 K/uL) 4.4 RBC (4.50 - 5.90 M/uL) 2.94 Hgb (13.5 - 17.5 gm/dL) 8.3 Hct (41.0 - 53.0 %) 25.5 MCV (80 - 100 fL) 87 MCH (26 - 34 pg) 28 RDW (11.6 - 14.8 %) 21.6 Neut % (Auto) (50 - 75 %) 74.9 Lymph % (Auto) (25 - 40 %) 11.2 [place] % (Auto) (3 - 14 %) 8.1 Eos % (Auto) (0 - 4 %) 5.1 Baso % (Auto) (0 - 2 %) 0.7 Plt Count, EDTA (150 - 400 K/uL) 211 RBC Morphology ANISOCYTOSIS +1 PUBS MCHC (31 - 37 g/dL) 33 Assessment and Plan Problem List 1. PAD (peripheral artery disease) Status Chronic Onset Date Unknown Plan looks like pt is agreeble to AKA 2. Cellulitis Status Chronic Onset Date Unknown Plan continue Vanco and Invanz 3. COPD (chronic obstructive pulmonary disease) Status Chronic Onset Date Unknown Plan dyspnea is controlled 4. Anemia Status Acute Onset Date Unknown Plan stable, monitoring
--- NOTE | 2016-07-28 10:51 | NUR ---
pt pending AKA. Will ck bk after s/p.
[2016-07-28 11:08] VITALS: BP 100/50
--- NOTE | 2016-07-28 11:33 | NUR ---
WOUND CARE NURSE WAS INTO SEE PT. DRESSING WERE DONE AND NEW MEPILEX APPLIED TO COCCYX AREA DUE TO ERYTHEMA. PT REPOSITIONED BUT DIFFICULT TO MAINTAIN POSITION DUE TO DISCOMFORT. SWALLOW EVAL HAS BEEN DONE AND RECOMMENDATIONS GIVEN. PT CONT TO C/O LLE PAIN AND HAS BEEN MEDICATED. HE DID WELL BEING UPRIGHT AND EATING BREAKFAST. DR VARELA WAS HERE THIS AM AND TALKED TO PT ABOUT POC. HE WILL RETURN 1245 TO TALK TO BROTHER ALSO REGARDING UPCOMING SURGICAL PLAN. PT IS AWARE HE WILL BE NPO AFTER MIDNIGHT.
--- NOTE | 2016-07-28 11:41 | NUR ---
Discussed specialty bed with Nursing Family Practice Doctor, as patients RN and I agree that patient requires one for: height 6'4", malnutrition-cachectic, intractable leg pain with any movement,Pending AKA, bed bound, prior history of pressure ulcer on coccyx. Specialty bed to be ordered, informed patients RN will continue to monitor.
--- NOTE | 2016-07-28 12:29 | NUR ---
NUTRITION FOLLOW UP NOTE: Pt was seen by [employer] today, 'mary aparicio and spoke with [employer] afer study. Pt to have soft moist foods, kitchen aware. Will continue high calorie high protein interventions in place as appropriate to help promote weight gain and healing. Wts up slightly since admit, however, could be from IVFS? Rec consider IMPACT advance recovery tid between meals for increased kcals and immunonutrition for surger. Rec order prealbumin lab and consider nutrition support to help further promote healing 2/2 pts dx/o malnurition and cachectic appearance. RD to conitinue to follow closely and avail for recommendation prn.
[2016-07-28 14:53] VITALS: BP 111/57
--- NOTE | 2016-07-28 17:06 | NUR ---
PT IS ON HIS NEW SPECIALITY BED. HE STATES IT IS COMFORTABLE. IV IS PATENT TO [facility]. CONNIE ARE D/I. NANCY AWANOT TO R FOOT.
[2016-07-28 18:20] VITALS: BP 115/54
--- NOTE | 2016-07-28 20:25 | NUR ---
Patient is well aware of the plans for tomorrow. He was reminded of being NPO post midnight and was encouraged to have snacks before then.He is now on a special pressure ulcer prevention bed.
[2016-07-28 22:07] VITALS: BP 122/49
--- NOTE | 2016-07-28 22:48 | ED DISCHARGE INSTRUCTIONS ---
Patient: SIDNEY SANA General Instructions [facility] VisitID: [id number] [address] [place] [address] 76y, M Registration Date/Time: 07/25/2016 Cellulitis of the left foot, left great toe, left 2nd toe, left 3rd toe, left 4th toe and left 5th toe. (Gangrene, L 4th toe.). (Electronically signed by Tona Kc MD 07/28/2016 22:47)
--- NOTE | 2016-07-28 22:48 | ED MED RECONCILIATION SUMMARY ---
Patient: ROCK SIDNEYWELL Medication Reconciliation Report [facility] VisitID: [id number] [address] [place] [address] 76y, M Registration Date/Time: 07/25/2016 Weight: 59.8 kg Height/Length: 76 in. BMI: 16.1 ALLERGIES: anibuse The patient's Home Medications are listed below: THE FOLLOWING MEDICATIONS NEED TO BE RECONCILED: Levothyroxine Sodium Oral Montelukast Sodium Oral Morphine Sulfate 15mg extended release Omeprazole Oral OxyCODONE HCl Oral 10 mg Tamsulosin HCl Oral The source(s) of the original Home Medication information: Not obtained. The following Medications were given to the patient in the Emergency Department: IV NS IV Fluids bolus 0, then 1000 mL/hr, administered: 07/25/2016 3:10:00 PM Dilaudid [IVP] IVP 1 mg, administered: 07/25/2016 3:10:00 PM Clindamycin [IVPB] IVPB bolus 0, then 900 mg 150 mL/hr, administered: 07/25/2016 4:07:00 PM Vancomycin [IVPB] IVPB bolus 0, then 1.5 gm 200 mL/hr, administered: 07/25/2016 5:04:00 PM Ertapenem [IVP] IVP 1 gm, administered: 07/25/2016 5:28:00 PM The following Medications were prescribed to the patient: None.
--- NOTE | 2016-07-28 22:48 | ED DISCHARGE INSTRUCTIONS ---
Patient: SIDNEY SANA General Instructions [facility] VisitID: [id number] [address] [place] [place] [address] 76y, M Registration Date/Time: 07/25/2016 Cellulitis of the left foot, left great toe, left 2nd toe, left 3rd toe, left 4th toe and left 5th toe. (Gangrene, L 4th toe.). (Electronically signed by Tona Kc MD 07/28/2016 22:47)
--- NOTE | 2016-07-28 22:48 | ED MAR SUMMARY ---
..... Medication Administration Record [facility] [address] [place] [address] Patient: SANA LITTLE Visit ID: [id number] 76y, M Weight: 59.8 kg Height/Length: 76 in BMI: 16.1 ALLERGIES: anibuse Start 15:10 07/25/2016 Harsha Lepe R.N., Stop 16:04 07/25/2016 Harsha Lepe R.N. Medication Administered: IV NS (SALINE), Dose: IV Fluids over 1 hour(s), Rate: 1000 mL/hr, Dispensed: 1000 mL bag, Site: #1 right. Medication Ordered: IV NS : initial bolus 1000 mL (1000 mL/hr), then none - (NOW). Given 15:10 07/25/2016 Harsha Lepe R.N. Medication Administered: DILAUDID [IVP] (HYDROMORPHONE HCL PF), Dose: 1 mg IVP over 1 minute(s), Site: #1 right. Medication Ordered: Dilaudid IV 1 mg (HIGH ALERT MEDICATION, NOW). Start 16:07 07/25/2016 Harsha Lepe R.N., Stop 16:30 07/25/2016 Harsha Lepe R.N. Medication Administered: CLINDAMYCIN [IVPB], Dose: 900 mg IVPB over 1 hour(s), Rate: 150 mL/hr, Dispensed: 50 mL bag, Site: #1 right. Medication Ordered: Clindamycin IV 900 mg/50mL (NOW). Start 17:07/25/2016 Harsha Lepe R.N., Continued Upon Disposition 18:05 07/25/2016 Harsha Lepe R.N. Medication Administered: VANCOMYCIN [IVPB], Dose: 1.5 gm IVPB over 1 hour(s), Rate: 200 mL/hr, Dispensed: 300 mL bag, Site: #1 right. Medication Ordered: Vancomycin IV 1.5 gm/500 mL (NOW). Given 17:28 07/25/2016 Harsha Lepe R.N. Medication Administered: ERTAPENEM [IVP], Dose: 1 gm IVP over 1 hour(s), Site: #1 right. Medication Ordered: Ertapenem IV 1 gm (NOW).
--- NOTE | 2016-07-28 22:48 | ED MED RECONCILIATION SUMMARY ---
Patient: ROCK SIDNEYWELL Medication Reconciliation Report [facility] VisitID: [id number] [address] [place] [address] 76y, M Registration Date/Time: 07/25/2016 Weight: 59.8 kg Height/Length: 76 in. BMI: 16.1 ALLERGIES: anibuse The patient's Home Medications are listed below: THE FOLLOWING MEDICATIONS NEED TO BE RECONCILED: Levothyroxine Sodium Oral Montelukast Sodium Oral Morphine Sulfate 15mg extended release Omeprazole Oral OxyCODONE HCl Oral 10 mg Tamsulosin HCl Oral The source(s) of the original Home Medication information: Not obtained. The following Medications were given to the patient in the Emergency Department: IV NS IV Fluids bolus 0, then 1000 mL/hr, administered: 07/25/2016 3:10:00 PM Dilaudid [IVP] IVP 1 mg, administered: 07/25/2016 3:10:00 PM Clindamycin [IVPB] IVPB bolus 0, then 900 mg 150 mL/hr, administered: 07/25/2016 4:07:00 PM Vancomycin [IVPB] IVPB bolus 0, then 1.5 gm 200 mL/hr, administered: 07/25/2016 5:04:00 PM Ertapenem [IVP] IVP 1 gm, administered: 07/25/2016 5:28:00 PM The following Medications were prescribed to the patient: None.
--- NOTE | 2016-07-28 22:48 | ED MAR SUMMARY ---
..... Medication Administration Record [facility] [address] [place] [address] Patient: SANA LITTLE Visit ID: [id number] 76y, M Weight: 59.8 kg Height/Length: 76 in BMI: 16.1 ALLERGIES: anibuse Start 15:10 07/25/2016 Harsha Lepe R.N., Stop 16:04 07/25/2016 Harsha Lepe R.N. Medication Administered: IV NS (SALINE), Dose: IV Fluids over 1 hour(s), Rate: 1000 mL/hr, Dispensed: 1000 mL bag, Site: #1 right. Medication Ordered: IV NS : initial bolus 1000 mL (1000 mL/hr), then none - (NOW). Given 15:10 07/25/2016 Harsha Lepe R.N. Medication Administered: DILAUDID [IVP] (HYDROMORPHONE HCL PF), Dose: 1 mg IVP over 1 minute(s), Site: #1 right. Medication Ordered: Dilaudid IV 1 mg (HIGH ALERT MEDICATION, NOW). Start 16:07 07/25/2016 Harsha Lepe R.N., Stop 16:30 07/25/2016 Harsha Lepe R.N. Medication Administered: CLINDAMYCIN [IVPB], Dose: 900 mg IVPB over 1 hour(s), Rate: 150 mL/hr, Dispensed: 50 mL bag, Site: #1 right. Medication Ordered: Clindamycin IV 900 mg/50mL (NOW). Start 17:07/25/2016 Harsha Lepe R.N., Continued Upon Disposition 18:05 07/25/2016 Harsha Lepe R.N. Medication Administered: VANCOMYCIN [IVPB], Dose: 1.5 gm IVPB over 1 hour(s), Rate: 200 mL/hr, Dispensed: 300 mL bag, Site: #1 right. Medication Ordered: Vancomycin IV 1.5 gm/500 mL (NOW). Given 17:28 07/25/2016 Harsha Lepe R.N. Medication Administered: ERTAPENEM [IVP], Dose: 1 gm IVP over 1 hour(s), Site: #1 right. Medication Ordered: Ertapenem IV 1 gm (NOW).
--- NOTE | 2016-07-28 23:09 | NUR ---
Tried to ring DR Trevino a couple of times just to verify if he wants this patient to be typed and cross matched in preparation for tomorrow's procedure but has not had any response yet.
[2016-07-29] VITALS (14 sets, daily range): BP systolic 105–137; BP diastolic 48–69
--- NOTE | 2016-07-29 09:16 | Progress Note ---
Subjective General Still has pain in left leg but controlled no fever or chills no dyspnea, no chest pain, mild cough, no sputum Physical Exam Vital Signs / I&Os Vital Signs Date Time Temp Pulse Resp B/P Pulse O2 O2 Flow FiO2 Ox Delivery Rate 07/29 0830 Room Air 07/29 0628 98.4 65 17 108/48 98 Room Air 07/29 0211 98.1 78 15 121/66 98 Room Air 07/28 2243 Room Air 07/28 2207 98.4 70 20 122/49 99 Room Air 07/28 1820 98.4 81 20 115/54 97 Room Air 07/28 1453 98.2 85 20 111/57 96 Room Air 07/28 1108 98.6 88 14 100/50 96 I&O 07/29 0000 07/28 1600 07/28 0800 Intake Total 1577 298 1183 Output Total 267 475 4546 Balance 1491 -85 315 General Appearance No acute distress Lungs decreased air exchage all over lungs Extremities necrosis and erythema in left foot LAB Results Laboratory Tests 07/29 07/29 0835 0510 Chemistry Plasma Sodium (136 - 145 mmol/L) 140 Plasma Potassium (3.5 - 5.1 mmol/L) 4.5 Plasma Chloride (98 - 107 mmol/L) 106 CO2 (Enzymatic) (21 - 32 mmol/L) 25 BUN (7 - 18 mg/dL) 11 Creatinine (0.6 - 1.3 mg/dL) 0.8 Est GFR ( Amer) (mL/min) >60 Est GFR (Non-Af Amer) (mL/min) >60 Glucose (70 - 110 mg/dL) 97 Plasma Calcium (8.5 - 10.1 mg/dL) 8.3 Coagulation INR (0.8 - 1.2) 1.0 Hematology WBC (4.5 - 11.5 K/uL) 4.2 RBC (4.50 - 5.90 M/uL) 2.67 Hgb (13.5 - 17.5 gm/dL) 7.6 Hct (41.0 - 53.0 %) 23.1 MCV (80 - 100 fL) 86 MCH (26 - 34 pg) 28 RDW (11.6 - 14.8 %) 21.6 Neut % (Auto) (50 - 75 %) 69.9 Lymph % (Auto) (25 - 40 %) 13.3 Williamson % (Auto) (3 - 14 %) 10.3 Eos % (Auto) (0 - 4 %) 5.7 Baso % (Auto) (0 - 2 %) 0.8 Plt Count, EDTA (150 - 400 K/uL) 202 RBC Morphology (07545 A) HYPOCHROMIA +1 PUBS MCHC (31 - 37 g/dL) 33 Toxicology Vancomycin Trough Pending Assessment and Plan Problem List 1. PAD (peripheral artery disease) Status Chronic Onset Date Unknown Plan heading for AKA 2. Cellulitis Status Chronic Onset Date Unknown Plan continue Vanco and Ivanz 3. COPD (chronic obstructive pulmonary disease) Status Chronic Onset Date Unknown Plan stable 4. Anemia Status Acute Onset Date Unknown Plan relatively stabe but gradually worsening, might need transfusion before or after surgery per their call
--- NOTE | 2016-07-29 09:16 | Progress Note ---
Subjective General Still has pain in left leg but controlled no fever or chills no dyspnea, no chest pain, mild cough, no sputum Physical Exam Vital Signs / I&Os Vital Signs Date Time Temp Pulse Resp B/P Pulse O2 O2 Flow FiO2 Ox Delivery Rate 07/29 0830 Room Air 07/29 0628 98.4 65 17 108/48 98 Room Air 07/29 0211 98.1 78 15 121/66 98 Room Air 07/28 2243 Room Air 07/28 2207 98.4 70 20 122/49 99 Room Air 07/28 1820 98.4 81 20 115/54 97 Room Air 07/28 1453 98.2 85 20 111/57 96 Room Air 07/28 1108 98.6 88 14 100/50 96 I&O 07/29 0000 07/28 1600 07/28 0800 Intake Total 4348 666 6959 Output Total 675 518 1394 Balance 1491 -85 315 General Appearance No acute distress Lungs decreased air exchage all over lungs Extremities necrosis and erythema in left foot LAB Results Laboratory Tests 07/29 07/29 0835 0510 Chemistry Plasma Sodium (136 - 145 mmol/L) 140 Plasma Potassium (3.5 - 5.1 mmol/L) 4.5 Plasma Chloride (98 - 107 mmol/L) 106 CO2 (Enzymatic) (21 - 32 mmol/L) 25 BUN (7 - 18 mg/dL) 11 Creatinine (0.6 - 1.3 mg/dL) 0.8 Est GFR ( Amer) (mL/min) >60 Est GFR (Non-Af Amer) (mL/min) >60 Glucose (70 - 110 mg/dL) 97 Plasma Calcium (8.5 - 10.1 mg/dL) 8.3 Coagulation INR (0.8 - 1.2) 1.0 Hematology WBC (4.5 - 11.5 K/uL) 4.2 RBC (4.50 - 5.90 M/uL) 2.67 Hgb (13.5 - 17.5 gm/dL) 7.6 Hct (41.0 - 53.0 %) 23.1 MCV (80 - 100 fL) 86 MCH (26 - 34 pg) 28 RDW (11.6 - 14.8 %) 21.6 Neut % (Auto) (50 - 75 %) 69.9 Lymph % (Auto) (25 - 40 %) 13.3 Williamson % (Auto) (3 - 14 %) 10.3 Eos % (Auto) (0 - 4 %) 5.7 Baso % (Auto) (0 - 2 %) 0.8 Plt Count, EDTA (150 - 400 K/uL) 202 RBC Morphology (95801 A) HYPOCHROMIA +1 PUBS MCHC (31 - 37 g/dL) 33 Toxicology Vancomycin Trough Pending Assessment and Plan Problem List 1. PAD (peripheral artery disease) Status Chronic Onset Date Unknown Plan heading for AKA 2. Cellulitis Status Chronic Onset Date Unknown Plan continue Vanco and Ivanz 3. COPD (chronic obstructive pulmonary disease) Status Chronic Onset Date Unknown Plan stable 4. Anemia Status Acute Onset Date Unknown Plan relatively stabe but gradually worsening, might need transfusion before or after surgery per their call
--- NOTE | 2016-07-29 09:51 | NUR ---
In to see patient, very painful 10/10 to left foot & leg. Pt given IV pain med, pt repositioning himself in bed trying to obtain a comfortable position, finally able to get comfortable after pain decreased down to 7/10, and warm blankets placed over feet, Jessica solorzano also in place, pt controlling temperature on his own. Pt turning himself, mikala nguyen, pt on specialty bed, will continue to monitor and make sure it is effective for pressure relief and pain control, if not may need to change bed or supplement with WAFFLE on top of mattress. Pt is scheduled to for surgery today left AKA around 1430-Will continue to monitor closely, working with patients RN and CAREER GUIDANCE TECHNICIAN to ensure vigilent care.
--- NOTE | 2016-07-29 10:26 | NUR ---
PATIENT IS COMPLETELY COOPERATIVE WITH CARES TODAY, WOKE UP FROM DEEP SLEEP AND WAS IN 10/10 PAIN, MEDICATION BROUGHT HIM TO 6/10 BUT STILL NOT EASILY TOLERATED FOR HIM. HE IS ABLE TO MAKE HIS NEEDS KNOWN, HELPS TURN IN THE BED, AND RATES HIS PAIN NUMERICALLY. SURGERY PLANNED TODAY, PATIENT IS AWARE. HEPARIN HELD ON PREVIOUS SHIFT. A.M. MORNING MEDS ALL HELD PER DR. LIZ PATIENT IS NPO. TM
--- NOTE | 2016-07-29 10:46 | NUR ---
pt pending AKA surgery this afternoon. Will ck adry 5-5
--- NOTE | 2016-07-29 14:49 | NUR ---
PATIENT JUST LEFT FOR OR, 1ST BAG OF BLOOD STILL TRANSFUSING, I RAN 145 CC OF 1ST BAG - NOTIFIED INSERT MOLDING OPERATOR THAT UNABLE TO WIPE WITH PREP CHECK WIPES BECAUSE HE IS SENSITIVE TO TOUCH AND THAT PATIENT TRIED TO VOID BUT IS UNABLE.
--- NOTE | 2016-07-29 16:09 | NUR ---
RIGHT HEEL REDDENED WITH SKIN INTACT, HAS PRESSURE BOOT ON HAS MULTIPLE ULCER AREAS WITH DRESSINGS IN PLACE UPON ARRIVAL TO O..
--- NOTE | 2016-07-29 17:15 | NUR ---
PT TX TO PACU, AROUSABLE, EXTUBATED ON O2 PER MASK. DRESSING DRY, ELEVATED ON PILLOW, VSS, SAT 100% ON 10L MASK--BLOOD (3RD UNIT) INFUSING.
--- NOTE | 2016-07-29 18:26 | NUR ---
1814-- PT STABLE, BLOOD INFUSING, MED FOR PAIN AND BRI WELL, REPORT PHONED TO FLOOR AND TX ON BED.
--- NOTE | 2016-07-29 19:12 | OPERATIVE REPORT ---
DATE OF SURGERY: 07/29/2016 SURGEON: Bryson Trevino MD PREOPERATIVE DIAGNOSES: 1. Ischemic gangrene of left forefoot POSTOPERATIVE DIAGNOSES: 1. Ischemic gangrene of left forefoot PROCEDURES PERFORMED: 1. Left above-knee amputation ANESTHESIA: General. COMPLICATIONS: No intraoperative complications were encountered. INDICATIONS: The patient is a 76-year-old man presenting with a necrotic left toe and a cellulitic forefoot. The patient is nonambulatory for many years. He had a previous left femoral fracture. SURGICAL TECHNIQUE: The patient was taken to the operating room where a general anesthetic was administered and the patient prepped and draped in usual sterile fashion. IV antibiotics were administered. A local anesthetic of 0.5% Marcaine with epinephrine was infiltrated along the incision line. A fish-mouth incision was designed 2/[address] down the thigh. The incision was carried out and carried deeper with electrocautery dissection. The femoral artery and vein were identified and double ligated. The sciatic nerve was also pulled down, short and cut and allowed to retract. Once the bone was approached there was a large plate running along the lateral part of the femur. A periosteal elevator was used to retract the tissues going superiorly to find the end of the plate. This proved to be a very long plate. Screws were removed from the infection that was in question and a large sound cutter was used to divide the plate above the site of the amputation. The limb was detached and submitted. The tourniquet was deflated and hemostasis completed using combination of clips, thrombin spray, tranexamic acid infusion. This patient was rather oozy and required all these modalities before hemostasis was satisfactory. Additionally, all deep layers were sutured using running 2-0 Vicryl suture, putting 3 layers across this in order to complete hemostasis of areas that were diffusely oozing and not particularly amenable to complete hemostasis. Once this had been accomplished, the subcuticular layer was closed with running 3-0 Vicryl suture and the skin reapproximated with sherri. Pressure was held on the wound until there was no further oozing from the skin edges and there was no sign of an expanding hematoma. A sterile dressing was placed and the patient left in stable condition.
--- NOTE | 2016-07-29 19:46 | NUR ---
PATIENT REC'D FROM PACU AT 1830 - STABLE AND REC'ING 3RD UNIT OF BLOOD. GIVEN REPORT TO ONCOMING NURSE AT 1900, PATIENT HAS DRIED BLOOD IN MOUTH FROM INTUBATION, DENIES SOB, DIFFICULTY BREATHING, OR DISCOMFORT - GIVEN ICE CHIPS AND JELLO, TOLERATED WELL. NICHOLS IN PLACE AND PATENT DRAINING CLEAR YELLOW URINE. ALERT AND ORIENTED, LUNGS CLEAR AND DIMINISHED IN BASES WITH SLIGHTLY COARSE THROUGHOUT. CLARIFIED ORDERS WITH DR. BOSCH AND DR. VARELA, ERTEPENEM TO REMAIN DC'D, OKAY TO ADMINISTER HEPARIN TONIGHT. DROUSY BUT ROUSABLE AND DENIES PAIN
--- NOTE | 2016-07-29 22:12 | NUR ---
PT IS NEEDING REORIENTATION FOR TIME OF DAY. PROVIDED COFFEE PER PT'S REQUEST. NO SOB, COUGHING AT THIS TIME. WCTM.
--- NOTE | 2016-07-30 00:46 | NUR ---
PT REPORTING 7/10 PAIN IN HIS LEFT HIP AND BACK, TREATED WITH 1MG HYDROMORPHONE. ASSISTED PT TO ADJUST POSITION IN BED TO RELIEVE PRESSURE ON ADOLFO PROMINENCES. PT IS ABLE TO MOVE HIM SELF QUITE WELL WITH LITTLE ASSISTANCE. SOME DRIED BLOOD AROUND MOUTH, SORE GUMS AND HOARSE VOICE PRESENT UPON RETURN FROM SURGERY.
[2016-07-30 02:39] VITALS: BP 113/59
--- NOTE | 2016-07-30 06:33 | Progress Note ---
Subjective General 76-year-old male who is status post left above-knee amputation. States that he is having some discomfort. No shortness of breath or chest pain Physical Exam Vital Signs / I&Os Vital Signs Date Time Temp Pulse Resp B/P Pulse O2 O2 Flow FiO2 Ox Delivery Rate 07/30 0239 98.2 69 15 113/59 98 Room Air 07/30 0010 Room Air 05/ 2237 97.9 74 16 109/60 96 Room Air 05/ 205 59 18 105/54 100 Nasal 5.5 Cannula 05/1999 97.7 66 18 120/68 100 Nasal 5.5 Cannula 05/ 193 97.5 65 18 118/63 100 Nasal 5.5 Cannula / 1930 Nasal 5.5 Cannula 05/ 185 97.7 72 18 130/67 100 Nasal 5.5 Cannula 05/ 1848 97.3 70 18 137/65 100 Nasal 5.5 Cannula 05/ 1827 97.9 72 18 132/69 100 Nasal 5.5 Cannula 05/ 1818 80 18 123/63 100 05/04 1750 98.1 78 16 130/64 100 Nasal 3.0 Cannula 05/04 1740 76 16 136/59 100 05/04 1730 80 16 133/64 100 05/04 1715 98.6 72 18 113/55 100 05/04 1711 99.0 69 20 121/64 100 MASK 10.0 05/04 1520 80 30 124/58 100 05/04 1415 69 11 119/58 98 05/04 1358 99.0 65 17 110/56 97 Room Air 05/04 1345 99.0 65 19 119/58 97 Room Air 05/04 1331 99.0 72 19 111/63 98 Room Air 05/04 1218 96 8 98 05/04 1041 98.4 93 20 110/60 98 Room Air / 0830 Room Air I&O 07/29 0800 05/04 1600 05 0000 Intake Total 787 588 1170 Output Total 1490 2400 Balance -657 850 -670 General Appearance Alert, Oriented X3, Cooperative, No acute distress Lungs Clear to auscultation Cardiovascular Regular rate and rhythm Extremities dressing on left above-knee amputation dry and intact Neurological No lateralizing signs Psych/Mental Status Mood normal LAB Results HEMOGLOBIN HEMATOCRIT: 30.9 respectively Laboratory Tests 07/29 07/30 0835 0501 Chemistry Plasma Sodium (136 - 145 mmol/L) 137 Plasma Potassium (3.5 - 5.1 mmol/L) 4.1 Plasma Chloride (98 - 107 mmol/L) 102 CO2 (Enzymatic) (21 - 32 mmol/L) 26 BUN (7 - 18 mg/dL) 12 Creatinine (0.6 - 1.3 mg/dL) 0.7 Est GFR ( Amer) (mL/min) >60 Est GFR (Non-Af Amer) (mL/min) >60 Glucose (70 - 110 mg/dL) 115 Plasma Calcium (8.5 - 10.1 mg/dL) 7.9 Hematology WBC (4.5 - 11.5 K/uL) 8.5 RBC (4.50 - 5.90 M/uL) 3.52 Hgb (13.5 - 17.5 gm/dL) 10.0 Hct (41.0 - 53.0 %) 30.9 MCV (80 - 100 fL) 88 MCH (26 - 34 pg) 29 RDW (11.6 - 14.8 %) 18.7 Neut % (Auto) (50 - 75 %) 86.1 Lymph % (Auto) (25 - 40 %) 7.3 Emanuel % (Auto) (3 - 14 %) 6.4 Eos % (Auto) (0 - 4 %) 0 Baso % (Auto) (0 - 2 %) 0.2 Plt Count, EDTA (150 - 400 K/uL) 205 PUBS MCHC (31 - 37 g/dL) 32 Toxicology Vancomycin Trough (10.0 - 20.0 ug/mL) 16.2 Assessment and Plan Problem List 1. Necrosis of toe Plan Status post left above-knee amputation. Patient stable. Continue present management.
[2016-07-30 07:06] VITALS: BP 119/52
--- NOTE | 2016-07-30 09:18 | NUR ---
In to see patient, dressing clean/dry and intact to left BECKIE, pt in 10/04 pain, notified patients RN, pain med given, changed patients gown, as there was blood to LLQ, upon assessment appears from prior injection site, area cleaned and band aid applied, pt currently having coffee and eating breakfast, will continue to monitor.
--- NOTE | 2016-07-30 09:19 | NUR ---
LATE ENTRY-- PT HAD MORE THAN 900 CC FROM NICHOLS, HAD COMPLAINED ABOUT BEING UNABLE TO VOID PREOP-- CALLED DR VARELA AND HE ORDERED NICHOLS TO REMAIN IN OVERNIGHT. TX IN BED TO FLOOR, NURSE GIVEN REPORT.
--- NOTE | 2016-07-30 10:06 | Progress Note ---
Subjective General pain in left leg is much better, but still has sorness also back pain, breathing is fine no fever or chills, no cough Physical Exam Vital Signs / I&Os Vital Signs Date Time Temp Pulse Resp B/P Pulse O2 O2 Flow FiO2 Ox Delivery Rate 07/30 0933 0.0 07/30 0706 97.9 67 18 119/52 99 Room Air 0.0 07/30 0239 98.2 69 15 113/59 98 Room Air 07/30 0010 Room Air 07/29 2237 97.9 74 16 109/60 96 Room Air 05/ 2059 59 18 105/54 100 Nasal 5.5 Cannula /1999 97.7 66 18 120/68 100 Nasal 5.5 Cannula 05/ 193 97.5 65 18 118/63 100 Nasal 5.5 Cannula / 1930 Nasal 5.5 Cannula 05/ 185 97.7 72 18 130/67 100 Nasal 5.5 Cannula 05/ 1848 97.3 70 18 137/65 100 Nasal 5.5 Cannula 05/ 1827 97.9 72 18 132/69 100 Nasal 5.5 Cannula 05/04 1818 80 18 123/63 100 05/04 1750 98.1 78 16 130/64 100 Nasal 3.0 Cannula 05/04 1740 76 16 136/59 100 05/04 1730 80 16 133/64 100 05/04 1715 98.6 72 18 113/55 100 05/04 1711 99.0 69 20 121/64 100 MASK 10.0 05/04 1520 80 30 124/58 100 05/04 1415 69 11 119/58 98 05/04 1358 99.0 65 17 110/56 97 Room Air 05/04 1345 99.0 65 19 119/58 97 Room Air 05/04 1331 99.0 72 19 111/63 98 Room Air 05/04 1218 96 8 98 05/04 1041 98.4 93 20 110/60 98 Room Air I&O 07/30 0000 05/04 1600 05/ 0800 Intake Total 1730 850 833 Output Total 2400 1490 Balance -670 850 -179 General Appearance Mild distress Lungs decreased Air exchage all over lungs Cardiovascular Regular rate and rhythm, Normal S1 and S2 Abdomen Normal bowel sounds, Soft, No tenderness Extremities S/P left AKA surgically dressed LAB Results Laboratory Tests 05/05 0510 Chemistry Plasma Sodium (136 - 145 mmol/L) 137 Plasma Potassium (3.5 - 5.1 mmol/L) 4.1 Plasma Chloride (98 - 107 mmol/L) 102 CO2 (Enzymatic) (21 - 32 mmol/L) 26 BUN (7 - 18 mg/dL) 12 Creatinine (0.6 - 1.3 mg/dL) 0.7 Est GFR ( Amer) (mL/min) >60 Est GFR (Non-Af Amer) (mL/min) >60 Glucose (70 - 110 mg/dL) 115 Plasma Calcium (8.5 - 10.1 mg/dL) 7.9 Hematology WBC (4.5 - 11.5 K/uL) 8.5 RBC (4.50 - 5.90 M/uL) 3.52 Hgb (13.5 - 17.5 gm/dL) 10.0 Hct (41.0 - 53.0 %) 30.9 MCV (80 - 100 fL) 88 MCH (26 - 34 pg) 29 RDW (11.6 - 14.8 %) 18.7 Neut % (Auto) (50 - 75 %) 86.1 Lymph % (Auto) (25 - 40 %) 7.3 [place] % (Auto) (3 - 14 %) 6.4 Eos % (Auto) (0 - 4 %) 0 Baso % (Auto) (0 - 2 %) 0.2 Plt Count, EDTA (150 - 400 K/uL) 205 PUBS MCHC (31 - 37 g/dL) 32 Assessment and Plan Problem List 1. PAD (peripheral artery disease) Status Chronic Onset Date Unknown Plan S/P left leg AKA, will go home, refused SNIF, off IV Abx 2. COPD (chronic obstructive pulmonary disease) Status Chronic Onset Date Unknown Plan stable continue inhalers 3. Anemia Status Acute Onset Date Unknown Plan Got one unit RBC will monitor
[2016-07-30 11:47] VITALS: BP 115/47
--- NOTE | 2016-07-30 12:15 | NUR ---
NUTRITION FOLLOW UP NOTE: Pt s/p BECKIE 07/29. Visited with pt at lunch today. States appetite is "good", drank all of his mighty shake, staff assisting with cutting up meats/foods to help with self feeding. Rec continue current nutritional inteventions in place to help promote healing and weight gain/muscle mass.
--- NOTE | 2016-07-30 14:24 | NUR ---
Pt able to move around in bed, mikala slowly, very painful with certain movements, doing alot of lifting onto his elbows which are starting to become red, blanchable though. Pt states has a history of previous pressure ulcers to his right elbow. Choice given to patient to have either elbow bows or foam dressings placed on elbows for prevention, foams placed on both elbows and secured with fabric tape. Reported to TRY OUT PERSON and RN, discussed with patient importance of repositioning all bony prominences, he expresses understanding. ALso discussed importance of not resuming smoking once he is discharged. he agrees and would like to use the nicotine patch after discharge for assistance in quitting. Will continue to monitor on my next working day.
[2016-07-30 14:41] VITALS: BP 114/48
--- NOTE | 2016-07-30 15:36 | NUR ---
0900- assessment completed. lung sounds dimished. Karyn craft CDI. pt reports pain in LLE. he feels phantom pain as well as incisional pain. will medicate per orders. discussed importance of repositioning in bed. mepelexes in place per tailings dam laborer, sherice. pt calls appropriately, but bed alarm on due to pt weakness.
--- NOTE | 2016-07-30 18:00 | NUR ---
PT'S BROTHER IN TO VISIT. HE STATES THAT HE DOES NOT HAVE ANY EQUIPMENT SUCH A HOSPITAL BED, WHEELCHAIR, ETC. FOR PT TO USE WHEN HE IS DISCHARGED TO HIS HOUSE. BUT THAT HE COULD REARRANGE HIS HOUSE TO ACCOMODATE.
[2016-07-30 18:29] VITALS: BP 125/50
--- NOTE | 2016-07-30 19:01 | NUR ---
VSS. A&OX4. DOES NOT ALWAYS CALL APPROPRIATELY. BED ALARM. SKIN CHECKS. PAIN NOT WELL CONTROLLED WITH DILAUDID 1 MG. STILL C/O 7-11/04 PAIN. AWARE. BROTHER IN AT BEDSIDE BRIEFLY. SEE SHIFT ASSESSMENT FOR FURTHER DETAILS. WCTM.
--- NOTE | 2016-07-30 21:00 | NUR ---
Patient's bandages on the left stump appear dry and intact. He has been resistive with moving and handling in bed but was reassured by staff that pain meds will be given promply if need be.
[2016-07-30 23:00] VITALS: BP 127/58
[2016-07-31 02:05] VITALS: BP 140/54
[2016-07-31 06:13] VITALS: BP 127/48
--- NOTE | 2016-07-31 07:43 | Progress Note ---
Subjective General 76-year-old white male with a significant past medical history of renal cell carcinoma status post left nephrectomy, lung CA, throat CA, COPD, hypothyroidism, coronary disease status post myocardial infarction, PAD who presented to [facility] emergency department on the day of admission secondary to complaints of left foot pain in swelling redness of one month duration. [facility] ER evaluation was consistent with cellulitis of left foot with necrotic fourth toe. Secondary to the above, the patient was admitted by Hebert Mullen M.D. for further evaluation and treatment. Subjective. Patient reports of left stump pain. He has no other complaints. Patient slept well. No nausea or vomiting diarrhea. Patient is demanding pain meds every 3-4 hours. Physical Exam Vital Signs / I&Os Vital Signs Date Time Temp Pulse Resp B/P Pulse O2 O2 Flow FiO2 Ox Delivery Rate 07/31 0613 98.4 68 20 127/48 99 / 0205 98.8 71 22 140/54 99 Room Air 07/30 2300 98.2 84 20 127/58 96 Room Air 07/30 2200 Room Air 07/30 1829 98.8 88 18 125/50 100 05/05 1644 Room Air 05/ 1441 98.2 91 18 114/48 96 05/05 1147 98.2 78 18 115/47 99 Room Air 0.0 07/30 0933 0.0 I&O 07/30 0800 05/05 1600 / 0000 Intake Total 1449 940 500 Output Total 90 800 1350 Balance 1359 140 -850 General Appearance Cooperative, No acute distress HEENT EOMI Lungs Clear to auscultation Neck Supple Cardiovascular Regular rate and rhythm Abdomen Normal bowel sounds, Soft LAB Results Laboratory Tests 07/31 0556 Chemistry Plasma Sodium (136 - 145 mmol/L) 142 Plasma Potassium (3.5 - 5.1 mmol/L) 4.1 Plasma Chloride (98 - 107 mmol/L) 108 CO2 (Enzymatic) (21 - 32 mmol/L) 30 BUN (7 - 18 mg/dL) 15 Creatinine (0.6 - 1.3 mg/dL) 0.7 Est GFR ( Amer) (mL/min) >60 Est GFR (Non-Af Amer) (mL/min) >60 Glucose (70 - 110 mg/dL) 98 Plasma Calcium (8.5 - 10.1 mg/dL) 8.0 Hematology WBC (4.5 - 11.5 K/uL) 6.5 RBC (4.50 - 5.90 M/uL) 3.19 Hgb (13.5 - 17.5 gm/dL) 9.4 Hct (41.0 - 53.0 %) 27.9 MCV (80 - 100 fL) 88 MCH (26 - 34 pg) 30 RDW (11.6 - 14.8 %) 18.6 Neut % (Auto) (50 - 75 %) 80.3 Lymph % (Auto) (25 - 40 %) 9.7 Kendall % (Auto) (3 - 14 %) 8.7 Eos % (Auto) (0 - 4 %) 0 Baso % (Auto) (0 - 2 %) 1.3 Plt Count, EDTA (150 - 400 K/uL) 204 PUBS MCHC (31 - 37 g/dL) 34 Assessment and Plan Problem List 1. COPD (chronic obstructive pulmonary disease) Status Chronic Onset Date Unknown Plan Stable on current regimen no changes 2. Hypothyroidism Status Chronic Onset Date Unknown Plan Continue current thyroid replacement no change 3. Chronic pain Status Chronic Onset Date Unknown Plan Pain control. Patient is well managed on current regimen 4. Nicotine dependence Status Chronic Onset Date Unknown Plan Continue the nicotine replacement. Patch every 24 5. CAD (coronary artery disease) Status Chronic Onset Date Unknown Plan History of coronary artery disease. Monitor 6. PAD (peripheral artery disease) Status Chronic Onset Date Unknown Plan PAD with BKA left side. Monitor pulses and for any skin breakdown E&M Codes Rounding: Inpt-Moderate/88090
[2016-07-31 10:11] VITALS: BP 145/43
--- NOTE | 2016-07-31 10:48 | Progress Note ---
Subjective General 76-year-old male postop day 2 left above-knee amputation. Some discomfort stump site. No shortness of breath. No chest pain. Physical Exam Vital Signs / I&Os Vital Signs Date Time Temp Pulse Resp B/P Pulse O2 O2 Flow FiO2 Ox Delivery Rate 07/31 1011 98.4 106 18 145/43 96 Room Air I&O 07/30 0800 05/05 1600 05/06 0000 Intake Total 1449 940 500 Output Total 90 800 1350 Balance 1359 140 -850 General Appearance Cooperative Lungs Clear to auscultation Cardiovascular Regular rate and rhythm Extremities left above-knee amputation site dressing intact. LAB Results Laboratory Tests 07/31 07/31 0556 0830 Chemistry Plasma Sodium (136 - 145 mmol/L) 142 Plasma Potassium (3.5 - 5.1 mmol/L) 4.1 Plasma Chloride (98 - 107 mmol/L) 108 CO2 (Enzymatic) (21 - 32 mmol/L) 30 BUN (7 - 18 mg/dL) 15 Creatinine (0.6 - 1.3 mg/dL) 0.7 Est GFR ( Amer) (mL/min) >60 Est GFR (Non-Af Amer) (mL/min) >60 Glucose (70 - 110 mg/dL) 98 Plasma Calcium (8.5 - 10.1 mg/dL) 8.0 Hematology WBC (4.5 - 11.5 K/uL) 6.5 RBC (4.50 - 5.90 M/uL) 3.19 Hgb (13.5 - 17.5 gm/dL) 9.4 Hct (41.0 - 53.0 %) 27.9 MCV (80 - 100 fL) 88 MCH (26 - 34 pg) 30 RDW (11.6 - 14.8 %) 18.6 Neut % (Auto) (50 - 75 %) 80.3 Lymph % (Auto) (25 - 40 %) 9.7 Burke % (Auto) (3 - 14 %) 8.7 Eos % (Auto) (0 - 4 %) 0 Baso % (Auto) (0 - 2 %) 1.3 Plt Count, EDTA (150 - 400 K/uL) 204 PUBS MCHC (31 - 37 g/dL) 34 Toxicology Vancomycin Trough Cancelled Assessment and Plan Problem List 1. Status post above knee amputation of left lower extremity Plan Patient stable. Continue present management. Monitor hemoglobin and hematocrit. Transfuse as appropriate.
[2016-07-31 14:30] VITALS: BP 103/58
[2016-07-31 18:38] VITALS: BP 114/48
--- NOTE | 2016-07-31 19:43 | NUR ---
A&OX3, LS DIMNISHED THROUGHOUT, HR IS REG AND BT ACTIVE. PT HAS MANY ADOLFO PROMINENCES THAT ARE COVERED, PT STATES, "I CAN TURN MYSELF." C/O PAIN AT 7/10 IN LEFT STUMP/LEG, PAIN MEDS GIVEN, WILL REASSESS. NO C/O NAUSEA. VSS. PT IS SALINE LOCK, AND TOLERATING FLUIDS PO WELL. NICHOLS IS PATENT AND DRAINING CLEAR YELLOW URINE. RESTING W/ CALL LIGHT IN REACH.
[2016-07-31 22:36] VITALS: BP 119/50
--- NOTE | 2016-08-01 02:21 | NUR ---
PT. IS RESTING IN BED AT THIS TIME. C/O L LEG PAIN, 10/04. ADMINISTERED DILAUDID, PT. TAKES PILLS ONE AT A TIME WITH APPLESAUCE. ENCOURAGING PT TO TURN AND ALSO ASSISTING PT. TO TURN TO PREVENT PROLONGED PRESSURE ON BONY PROMINENCES. NICHOLS CATHETER DRAINING CLEAR YELLOW URINE. ABLE TO MAKE NEEDS KNOWN. WCTM.
[2016-08-01 03:01] VITALS: BP 120/62
[2016-08-01 06:34] VITALS: BP 122/63
--- NOTE | 2016-08-01 07:14 | Progress Note ---
Subjective General Note Date: Admission Date: 07/25/2016 Hospital Day: 13 PCP: none Status: Inpatient acute care Advanced Directive: Full code Room: 211 76-year-old white male with a significant past medical history of renal cell carcinoma status post left nephrectomy, lung CA, throat CA, COPD, hypothyroidism, coronary disease status post myocardial infarction, PAD who presented to [facility] emergency department on the day of admission secondary to complaints of left foot pain in swelling redness of one month duration. [facility] ER evaluation was consistent with cellulitis of left foot with necrotic fourth toe. Secondary to the above, the patient was admitted by Hebert Mullen M.D. for further evaluation and treatment. Subjective. Patient reports of persistent left stump pain. Patient is able to transfer himself from bed. Patient is eating well. Remained alert, awake, during the day Patient requests Pain control Constitutional Denies: Fever, Chills, Sweats. Physical Exam Vital Signs / I&Os Vital Signs Date Time Temp Pulse Resp B/P Pulse O2 O2 Flow FiO2 Ox Delivery Rate 08/01 0634 98.2 74 19 122/63 99 Room Air / 0301 98.2 67 18 120/62 99 Room Air / 0218 0.0 / 2236 98.4 80 18 119/50 99 Room Air 05/06 1838 98.6 84 20 114/48 100 Room Air 05/06 1640 Room Air 05/06 1430 98.4 91 18 103/58 98 Room Air 05/06 1011 98.4 106 18 145/43 96 Room Air I&O 05/06 0800 05/06 1600 05/07 0000 Intake Total 3122 1280 500 Output Total 3350 1200 1000 Balance -228 80 -500 General Appearance No acute distress, frail, thin HEENT EOMI Lungs Normal air movement Cardiovascular Normal S1 and S2 Extremities BKA, left Skin No Rashes LAB Results Laboratory Tests 07/31 0830 Toxicology Vancomycin Trough Cancelled Assessment and Plan Problem List 1. Hypothyroidism Status Chronic Onset Date Unknown Plan Maintain thyroid replacement. 2. CAD (coronary artery disease) Status Chronic Onset Date Unknown Plan Optimized. 3. Nicotine dependence Status Chronic Onset Date Unknown Plan Cessation encouraged. Patient currently on replacement for nicotine. 4. COPD (chronic obstructive pulmonary disease) Status Chronic Onset Date Unknown Plan Respiratory status stable. 5. Cellulitis Status Chronic Onset Date Unknown Plan Status post BKA, left lower extremity. 6. PAD (peripheral artery disease) Status Chronic Onset Date Unknown Plan History of PAD; smoking cessation encouraged. Slowly vascular medicine is appropriate. Optimize his antiplatelet and statin therapy. 7. Anemia Status Acute Onset Date Unknown Plan Patient anemic on admission; subsequent iron studies were done. All dynamics of iron stores were showing deficiency. We'll continue with the 325 mg of ferrous sulfate daily. The management of his iron and anemia can be called a outpatient care. 8. Status post above knee amputation of left lower extremity Plan Status post BKA left. Stable. Needing physical therapy to dress conditioning, and transfer strength. Discharge planning. Patient will be discharged to home with home health care. Needing special accommodations at home included a ramp and a wheelchair. Current status: Fair, stable Anticipated discharge date: Anticipated discharge in 2-3 days days Anticipated discharge placement: Home with home health Patient care time: Time spent in chart review, patient interview, physical exam, CPOE, and care documentation: 25 minutes Visit to patient today: 2 Complexity of care: Moderate DVT prophylaxis: Heparin 5000 units subcutaneous every 8 hours GI prophylaxis: Protonix 40 mg by mouth daily Initial patient evaluation: Emergency department Advance care plan: Patient wishes to be placed on FULL CODE STATUS. Advanced care plan documented. See advance care note. E&M Codes Rounding: Inpt-Moderate/51997
[2016-08-01 10:28] VITALS: BP 103/40
--- NOTE | 2016-08-01 10:39 | Progress Note ---
Subjective General 76-year-old male postop day 3 status post left above-knee amputation. Resting comfortably. Physical Exam Vital Signs / I&Os Vital Signs Date Time Temp Pulse Resp B/P Pulse O2 O2 Flow FiO2 Ox Delivery Rate I&O 07/31 0800 07/31 1600 08/01 0000 Intake Total 3122 1280 500 Output Total 3350 1200 1000 Balance -228 80 -500 Extremities dressing left above-knee amputation site dry and intact Assessment and Plan Problem List 1. Status post above knee amputation of left lower extremity Plan Stable postop. All problems presently being addressed by hospitalist.
[2016-08-01 14:45] VITALS: BP 96/55
--- NOTE | 2016-08-01 14:49 | NUR ---
1200- palomino removed without incident per verbal order dr. laguna. 1400- called md for breakthrough pain meds, pt c/o 11/04 pain. rec'd orders from
--- NOTE | 2016-08-01 18:23 | NUR ---
PT IS A&OX3, LS DIMINISHED THROUGHOUT, HR IS REG AND BT HYPOACTIVE. DRESSING ON LEFT STUMP IS C/D/I AND ELEVATED. C/O PAIN AT 7/10 IN LEFT STUMP, PAIN MEDS WERE GIEN SHORTLY BEFORE BY PREVIOUS RN. PT STATES, "I HAVE BEEN MOVING MYSELF." NICHOLS WAS DC'D AT 1200, PT VOIDED 300CC AFTER DINNER. NO C/O NAUSEA. SEVERAL ADOLFO PROMINENCES ON ELBOWS, COCCYX AND ANKLE COVERED W/ MEPLEX. RESTING W/ CALL LIGHT IN REACH.
[2016-08-01 18:59] VITALS: BP 106/59
[2016-08-01 22:41] VITALS: BP 114/67
[2016-08-02 02:26] VITALS: BP 115/61
--- NOTE | 2016-08-02 03:27 | NUR ---
PT. IS RESTING IN BED AT THIS TIME. STUMP ELEVATED ON PILLOW. C/O L STUMP, HIP AND BACK PAIN 11/04. DILAUDID ADMINISTERED. PT. IS USING URINAL WIITHOUT ISSUES. PT. IS ABLE TO TURN ON HIS OWN, MONITORING THIS EVERY 2 HOURS. MEPILEX ON BONY PROMININCES. WCTM.
[2016-08-02 06:09] VITALS: BP 117/62
--- NOTE | 2016-08-02 07:17 | Progress Note ---
Subjective General Note Date: Admission Date: 07/25/2016 Hospital Day: 14 PCP: none Status: Inpatient acute care Advanced Directive: Full code Room: 211 76-year-old white male with a significant past medical history of renal cell carcinoma status post left nephrectomy, lung CA, throat CA, COPD, hypothyroidism, coronary disease status post myocardial infarction, PAD who presented to [facility] emergency department on the day of admission secondary to complaints of left foot pain in swelling redness of one month duration. [facility] ER evaluation was consistent with cellulitis of left foot with necrotic fourth toe. Secondary to the above, the patient was admitted by Hebert Mullne M.D. for further evaluation and treatment. Subjective. Patient reports of stump pain. Patient is asking for increasing pain control. He states he doesn't quite feel like he is ready to go home for the next 3 or 4 days. Patient requests Pain control Physical Exam Vital Signs / I&Os Vital Signs Date Time Temp Pulse Resp B/P Pulse O2 O2 Flow FiO2 Ox Delivery Rate 08/02 0609 98.4 67 18 117/62 99 Room Air 08/02 0321 0.0 08/02 0226 97.9 81 18 115/61 96 Room Air / 2241 98.2 90 16 114/67 97 Room Air 05/ 1859 97.9 80 12 106/59 98 Room Air 05/07 1650 Room Air 05/ 1445 98.8 93 17 96/55 99 Room Air 0.0 05/07 1028 98.8 95 17 103/40 98 Room Air I&O /07 0800 05/07 1600 05/08 0000 Intake Total 500 560 200 Output Total 1400 850 450 Balance -900 -290 -250 General Appearance Oriented X3 HEENT EOMI Lungs Clear to auscultation Cardiovascular Regular rate and rhythm LAB Results Laboratory Tests 08/02 0557 Hematology Hgb (13.5 - 17.5 gm/dL) 8.4 Hct (41.0 - 53.0 %) 26.4 Assessment and Plan Problem List 1. Hypothyroidism Status Chronic Onset Date Unknown Plan thyroid replacement. 2. CAD (coronary artery disease) Status Chronic Onset Date Unknown Plan Monitor watching for any changes in symptomatology. Patient with anemia. 3. COPD (chronic obstructive pulmonary disease) Status Chronic Onset Date Unknown Plan Pulmonary compromised; continue with the appropriate bronchial maintenance care. 4. Nicotine dependence Status Chronic Onset Date Unknown Plan Smoking cessation encouraged. We'll continue with the patch. Patient will be sent home on patches upon discharge. 5. PAD (peripheral artery disease) Status Chronic Onset Date Unknown Plan Vascular perfusion study should be reviewed in the future. 6. Cellulitis Status Chronic Onset Date Unknown Plan Cellulitis and lower extremity has resolved. BKA. Stump looks good 7. Anemia Status Acute Onset Date Unknown Plan monitor for blood loss anemia Current status: Fair, stable Anticipated discharge date: Anticipated discharge in 1-2 days Anticipated discharge placement: Home with home health Patient care time: Time spent in chart review, patient interview, physical exam, CPOE, and care documentation: 25 minutes Visit to patient today: Complexity of care: Moderate DVT prophylaxis: Heparin 5000 units subcutaneous every 8 hours GI prophylaxis: Protonix 40 mg by mouth daily Initial patient evaluation: Emergency department Advance care plan: FULL CODE STATUS. E&M Codes Rounding: Inpt-Moderate/50320
--- NOTE | 2016-08-02 09:20 | Progress Note ---
Subjective General POD 4 post left AKA No new complaints, leg is sore. Physical Exam Vital Signs / I&Os Vital Signs Date Time Temp Pulse Resp B/P Pulse O2 O2 Flow FiO2 Ox Delivery Rate 08/02 0609 98.4 67 18 117/62 99 Room Air 08/02 0321 0.0 08/02 0226 97.9 81 18 115/61 96 Room Air 08/01 2241 98.2 90 16 114/67 97 Room Air 08/01 1859 97.9 80 12 106/59 98 Room Air 08/01 1650 Room Air 08/01 1445 98.8 93 17 96/55 99 Room Air 0.0 08/01 1028 98.8 95 17 103/40 98 Room Air I&O 08/01 0800 / 1600 / 0000 Intake Total 500 560 200 Output Total 1400 850 450 Balance -900 -290 -250 General Appearance Alert, Cooperative Extremities Left AKA stump looks good without skin compromise. Minor blister. New dressing applied. Assessment and Plan Problem List 1. Status post above knee amputation of left lower extremity Plan Disposition per hospitalist Pt will need follow up and staple removal in about 10 days.
--- NOTE | 2016-08-02 09:58 | NUR ---
In to see patient with Dr. Trevino, first dressing removal from surgery to left AKA. Old dressing removed, serosanginous drainage noted. Incision line is without redness, slight edema, no drainage noted at this time, multiple small bilsters on inferior aspect of incision line, in center, incision is approximated as well. Order recevied to place Mepilex Border 4x10 PostOp dressing, with no liliana wrap required. Pt tolerated dressing placement well, apprehensive about applying pressure, assisted in smoothing dressing border down. In addition, replaced Sacrum foam dressing to coccyx, still eveidence of old pressure injury, blanchable redness throughout, less than before. Noted redness on right side of scrotum and the right groin skin fold. Area cleansed with gentle wipes, applied Z-Prime zinc paste, pt assisted, and as he wants to do it himself, left it at bedside and pt will apply PRN. Pt elbows less red as well, pt states back to baseline coloring, darker, bruised looking. Report given to pts RN and SALES PERFORMANCE MANAGER, will continue to monitor.
[2016-08-02 11:22] VITALS: BP 114/52
--- NOTE | 2016-08-02 11:54 | NUR ---
pt supine in bed and agreeable to skilled PT treatment. pt completed supine to sit I. pt scoot pivot transferred into the w/c SBA. pt was pushed around the hallway for 1loop and then was agreeable to push himself. He completed 100ft of pushing the w/c. pt completed scoot pivot transfer from w/c to bed and I scooted himself up in the bed. pt reported that ramp is being built at his brother's house. As long as pt has increased A at home and is able to get inside via ramp pt will be safe to d/c to brother's with HHPT.
[2016-08-02 14:30] VITALS: BP 106/51
--- NOTE | 2016-08-02 15:03 | NUR ---
NUTRTITION FOLLOW UP NOTE: Visited with pt today, drinking ice cream shake. Pt has resource 2.0 ordered tid which can be mixed with ice cream as well for increased palatability if pt desires. Pt continues with increased healing needs, wound RN following. No BM noted since 28 of July, nsg aware and bowl elimiation interventions discussed. Noted Miralax and senna in place. PO remains variable 10-80%, frequent ice cream snacks noted. Rec continue high calorie high protein diet with mighty shakes q meal and resource 2.0 tid between meals, snacks prn/ad-hero. RD to continue to follow closely.
--- NOTE | 2016-08-02 16:35 | NUR ---
In to see patient and brother regarding tentative discharge. Pt given materials regarding WAFFLE mattress, chair pad and boot usage. Also given information about dressing on Left AKA, went over pressure injury prevention tips again, answered all questions, pt and brother expressed understanding, will continue to monitor.
[2016-08-02 18:57] VITALS: BP 115/61
--- NOTE | 2016-08-02 20:04 | NUR ---
PT IS A&OX3, LS DIMINISHED THROUGHOUT, HR IS REG AND BT ACTVE. C/O PAIN AT 6/10 IN LEFT STUMP, DRESSING ON LEFT STUMP IS C/D/I AND ELEVATED. NO NAUSEA. UP IN CHAIR FOR DINNER AND TOLERATED WELL. DRESSING ON COCCYX IS C/D/I. RESTING W/ CALL LIGHT IN REACH.
[2016-08-02 23:21] VITALS: BP 124/58
[2016-08-03] VITALS (8 sets, daily range): BP systolic 95–126; BP diastolic 47–59
--- NOTE | 2016-08-03 01:57 | NUR ---
PT. IS RESTING IN BED AT THIS TIME. TURNS EVERY 2 HOURS. ENCOURAGING PO FLUID INTAKE. ASSESSMENT COMPLETED. STATES HE IS COMFORTABLE AT THIS TIME AND DENIES THE NEED FOR PAIN MEDICATION. WAFFLE BOOT ON, DRESSING C/D/I ON L STUMP.
--- NOTE | 2016-08-03 07:00 | Progress Note ---
Subjective General Note Date: Admission Date: 07/25/2016 Hospital Day: 15 PCP: none Status: Inpatient acute care Advanced Directive: Full code Room: 211 76-year-old white male with a significant past medical history of renal cell carcinoma status post left nephrectomy, lung CA, throat CA, COPD, hypothyroidism, coronary disease status post myocardial infarction, PAD who presented to [facility] emergency department on the day of admission secondary to complaints of left foot pain in swelling redness of one month duration. [facility] ER evaluation was consistent with cellulitis of left foot with necrotic fourth toe. Secondary to the above, the patient was admitted by Hebert Mullen M.D. for further evaluation and treatment. Subjective. She continues to complain of soreness in the stump. Patient having some inability to get around. Patient is wishing to go home tomorrow. Patient requests Discharge Physical Exam Vital Signs / I&Os Vital Signs Date Time Temp Pulse Resp B/P Pulse O2 O2 Flow FiO2 Ox Delivery Rate 08/03 0252 98.1 72 20 126/57 98 Room Air 08/03 0135 0.0 / 2321 98.6 80 20 124/58 96 Room Air 05/ 1857 98.2 75 20 115/61 100 Room Air 05/08 1645 Room Air 05/08 1430 98.2 66 20 106/51 100 Room Air 05/08 1122 98.2 77 18 114/52 98 Room Air 05/08 0900 Room Air 0.0 I&O / 0800 05/08 1600 05/09 0000 Intake Total 370 240 300 Output Total 600 500 575 Balance -230 -260 -275 General Appearance Oriented X3, Cooperative Lungs Clear to auscultation Cardiovascular Regular rate and rhythm Extremities Abve the knee amputation on the left Assessment and Plan Problem List 1. PAD (peripheral artery disease) Status Chronic Onset Date Unknown Plan Smoking cessation encouraged. She is amenable to stopping smoking. Patient will need follow-up with vascular medicine 2. Anemia Status Acute Onset Date Unknown Plan Monitoring anemia. H&H in the a.m. 3. CAD (coronary artery disease) Status Chronic Onset Date Unknown Plan Coronary artery disease. Optimize cardiac function 4. Hypothyroidism Status Chronic Onset Date Unknown Plan On thyroid replacement. 5. Chronic pain Status Chronic Onset Date Unknown Plan Continue to monitor pain level. Control of pain is appropriate at this time. 6. COPD (chronic obstructive pulmonary disease) Status Chronic Onset Date Unknown Plan Monitor pulmonary function. Smoking cessation encouraged 7. Cellulitis Status Chronic Onset Date Unknown Plan Cellulitis resolved Current status: Fair, stable Anticipated discharge date: Anticipated discharge 08/04/16 Anticipated discharge placement: Home with home health Patient care time: Time spent in chart review, patient interview, physical exam, CPOE, and care documentation: 25 minutes Visit to patient today: Complexity of care: Moderate DVT prophylaxis: Heparin 5000 units subcutaneous every 8 hours GI prophylaxis: Protonix 40 mg by mouth daily Initial patient evaluation: Emergency department Advance care plan: FULL CODE STATUS. E&M Codes Rounding: Inpt-Moderate/17159
--- NOTE | 2016-08-03 13:01 | NUR ---
0800- assessment completed. discussed pain managment. pt reports pain is adequately controlled today and reports is 6/10 currently, after po meds drops to about a 4-5/10. he is alert and oriented. assisted pt OOB for breakfast. Instructed on transfer technique from bed to chair. pt was able to stand and use walker to transfer to chair with minimal assist. 1100- teaching with patient on dressing changes, turning, and transfer technique to prepare pt for DC to home. pt states understanding.
--- NOTE | 2016-08-03 15:58 | NUR ---
PT IS A&OX3, LS DIMINISHED THROUGHOUT, HR IS REG AND BT ACTIVE. C/O PAIN AT 7/10 IN HIP, BREATHTHROUGH MEDS GIVEN, WILL REASSESS. NO C/O NAUSEA OR SOB. VSS. WOUND EDUCATION REGARDING HIPS AND COCCYX DONE. PT STATES THAT HE IS TURNING HIMSELF. RESTING W/ CALL LIGHT IN REACH.
--- NOTE | 2016-08-03 18:13 | NUR ---
PT C/O CHEST PAIN AT 6/10 AT 1800. MD NOTIFIED. ECG AND MEDS ORDERED BY MD. BP IS 98/50 AND PULSE IS 105. PT STATES, "ON AND OFF PAIN." WCTM.
--- NOTE | 2016-08-03 18:21 | NUR ---
ECG COMPLETE W/ NSR W/ OCCASISONAL PVC. AWARE. ADMINISTERED 1 NITRO TABLET. WCTM.
--- NOTE | 2016-08-03 22:34 | NUR ---
CHEST PAIN RESOLVED. C/O PAIN IN HIP AND LEFT STUMP/LEG AT 10. PAIN MEDS ADMINISTERED. PT FEELING BETTER THIS EVENING. RESTING W/ CALL LIGHT IN REACH.
--- NOTE | 2016-08-04 00:35 | NUR ---
PT. IS RESTING IN BED AT THIS TIME. C/O L STUMP PAIN AND PHANTOM LIMB PAIN. DILAUDID ADMINISTERED. ENCOURAGING PT. TO TURN EVERY 2 HOURS, PT. IS TURNING INDEPENDENTLY. MEPILEX ON COCCYX. MEPILEX DRESING ON L STUMP C/D/I. WAFFLE BOOT ON R LEG, R HEEL WITH BLANCHABLE REDNESS. WCTM.
[2016-08-04 03:08] VITALS: BP 106/49
--- NOTE | 2016-08-04 07:05 | Progress Note ---
Subjective General Note Date: Admission Date: 07/25/2016 Hospital Day: 10 PCP: none Status: Inpatient acute care Advanced Directive: Full code Room: 211 76-year-old white male with a significant past medical history of renal cell carcinoma status post left nephrectomy, lung CA, throat CA, COPD, hypothyroidism, coronary disease status post myocardial infarction, PAD who presented to [facility] emergency department on the day of admission secondary to complaints of left foot pain in swelling redness of one month duration. [facility] ER evaluation was consistent with cellulitis of left foot with necrotic fourth toe. Secondary to the above, the patient was admitted by Hebert Mullen M.D. for further evaluation and treatment. Subjective Patient is eating well. Continues to complain of soreness in the left stump Patient is transferring from the bed to the chair. He is feeling well. Patient requests Pain control. Change to the 10 mg oxycodone. Physical Exam Vital Signs / I&Os Vital Signs Date Time Temp Pulse Resp B/P Pulse O2 O2 Flow FiO2 Ox Delivery Rate 08/04 0308 97.9 64 20 106/49 96 Room Air 08/04 0033 0.0 08/03 2308 98.4 73 20 111/53 97 Room Air 08/03 1923 98.1 85 20 105/59 97 Room Air 0.0 08/03 1828 95 20 95/50 97 Room Air 0.0 08/03 1807 105 16 98/50 98 08/03 1536 Room Air 08/03 1431 98.1 80 20 108/57 98 Room Air 0.0 08/03 1036 98.1 72 18 99/50 97 Room Air 0.0 08/03 0753 98.2 72 16 110/47 92 Room Air 0.0 I&O 08/03 0800 08/03 1600 08/04 0000 Intake Total 240 2040 480 Output Total 1000 775 675 Balance -760 1265 -195 General Appearance Oriented X3, Cooperative HEENT PERRLA, EOMI Lungs Clear to auscultation Cardiovascular Regular rate and rhythm Extremities AKA left side. Sugical sight is wrapped. Neurological No lateralizing signs Psych/Mental Status Mood normal LAB Results Laboratory Tests 08/03 08/04 08/04 08/04 2150 UNK UNK 0535 Chemistry Plasma Sodium Cancelled Plasma Potassium Cancelled Plasma Chloride Cancelled CO2 (Enzymatic) Cancelled BUN Cancelled Creatinine Cancelled Est GFR ( Amer) Cancelled Est GFR (Non-Af Amer) Cancelled Glucose Cancelled Plasma Calcium Cancelled Troponin (0.00 - 1.5 ng/mL) <0.05 Hematology WBC Cancelled RBC Cancelled Hgb (13.5 - 17.5 gm/dL) Cancelled Cancelled 8.1 Hct (41.0 - 53.0 %) Cancelled Cancelled 24.8 MCV Cancelled MCH Cancelled RDW Cancelled Plt Count, EDTA Cancelled PUBS MCHC Cancelled Microbiology Date/Time Procedure - Status Source Growth 08/04 UNK Deep Wound Culture - CAN ANKLE Cancelled: Cancelled via OE: WRONG PT / UNK Deep Wound Culture - CAN ANKLE Cancelled: Cancelled via OE: WRONG PT / UNK Gram Stain - CAN ANKLE Cancelled: Cancelled via OE: WRONG PT / UNK Blood Culture - CAN BLOOD Cancelled: Cancelled via OE: WRONG PT /10 UNK Blood Culture - CAN BLOOD Cancelled: Cancelled via OE: WRONG PT Assessment and Plan Problem List 1. PAD (peripheral artery disease) Status Chronic Onset Date Unknown Plan He needs to be seen by Vascular medicine as an outpatient 2. Anemia Status Acute Onset Date Unknown Plan Anemia, most likely related to blood loss. Appropriate nutritional support upon discharge. 3. CAD (coronary artery disease) Status Chronic Onset Date Unknown Plan Coronary artery disease. Continue to optimize. Primary care, may consider cardiology consultation. 4. Hypothyroidism Status Chronic Onset Date Unknown Plan Currently on thyroid replacement. No changes Current status: Fair, stable Anticipated discharge date: Anticipated discharge today 08/04/16 Anticipated discharge placement: Home with home health. Patient care time: Time spent in chart review, patient interview, physical exam, CPOE, and care documentation: 35 minutes Visit to patient today: 1 Complexity of care: Moderate Initial patient evaluation: Emergency department DVT prophylaxis: Heparin GI ppx , Fametidine 20 mg by mouth twice a day
[2016-08-04 07:30] VITALS: BP 114/56
--- NOTE | 2016-08-04 10:06 | NUR ---
PATIENT A AND O X 4. ABLE TO MOVE RLE AND CMS + TO RLE. L AKA WITH MEPILEX TO STUMP. LUNGS CLEAR. USING URINAL BY HIMSELF. MEPILEX TO COCCYX. STATES PAIN 7/10 AT L HIP AND L STUMP AREA. PLAN IS FOR PATIENT TO DC HOME TODAY WITH BROTHER. PATIENT HAD BLEEDING AT ABDOMEN WHICH IS STOPPED NOW AND IS FROM LOVENOX SHOT GIVEN.
--- NOTE | 2016-08-04 10:58 | Discharge Summary ---
Discharge Summary Report Admit Date 07/26/16 Discharge Date 08/04/16 Admission Diagnosis 1. Cellulitis 2. COPD 3. Chronic pain 4. Hypothyroidism 5. Nicotine dependence 6. CAD 7. Anemia 8. PAD 9. Necrosis of the toe Discharge Diagnosis 1. Cellulitis; resolved 2. COPD 3. Chronic pain 4. Hypothyroidism 5. Nicotine dependence 6. CAD 7. Anemia 8. PAD 9. Necrosis of the toe resolved with AKA 10. Status post AKA left 11. Brief History See HPI 07/25/16 Brief this is a 76-year-old male that was admitted with a cellulitis and a necrotic fourth digit on the left foot. Patient was found to have osteomyelitis. Patient was consulted by general surgery. Hospital Course Patient was admitted under hospitalist services. Patient found to have a necrotic left fourth digit hand cellulitis. Patient was started on IV antibiotics. Wound care was consulted. The Lesion was consistent with a a questionable osteomyelitis of the fourth digit of the left foot. Radiographic studies of the foot showed swelling but no definitive osteomyelitis. Initial duplex studies of lower extremity revealed thrombosis of the left anterior tibial, atherosclerosis of the proximal left lower extremity. Consulted by general surgery. Found to have an ischemic necrotic change in left foot. Patient benefited from a [id number]-[id number] amputation. Patient will continue with the IV antibiotics until eradication of infection. Patient had encouragement to discontinue all smoking habits. Patient underwent successful [id number]-[id number] amputation of the left lower extremity. Patient had an unremarkable postop course. Patient was reintroduced to home medication pain control was completed antibiotics were completed patient was assessed by physical therapy. Patient was discharged home with his brother with home health. General Appearance Oriented X3, Cooperative HEENT EOMI Lungs Clear to auscultation Cardiovascular Normal S1, Normal S2 Abdomen Soft Psych/Mental Status Mood NL Lab/Imaging Laboratory Tests 08/03 08/04 08/04 08/04 2150 UNK UNK 0535 Chemistry Plasma Sodium Cancelled Plasma Potassium Cancelled Plasma Chloride Cancelled CO2 (Enzymatic) Cancelled BUN Cancelled Creatinine Cancelled Est GFR ( Amer) Cancelled Est GFR (Non-Af Amer) Cancelled Glucose Cancelled Plasma Calcium Cancelled Troponin (0.00 - 1.5 ng/mL) <0.05 Hematology WBC Cancelled RBC Cancelled Hgb (13.5 - 17.5 gm/dL) Cancelled Cancelled 8.1 Hct (41.0 - 53.0 %) Cancelled Cancelled 24.8 MCV Cancelled MCH Cancelled RDW Cancelled Plt Count, EDTA Cancelled PUBS MCHC Cancelled Microbiology Date/Time Procedure - Status Source Growth 08/04 UNK Deep Wound Culture - CAN ANKLE Cancelled: Cancelled via OE: WRONG PT 08/04 UNK Deep Wound Culture - CAN ANKLE Cancelled: Cancelled via OE: WRONG PT 08/04 UNK Gram Stain - CAN ANKLE Cancelled: Cancelled via OE: WRONG PT 08/04 UNK Blood Culture - CAN BLOOD Cancelled: Cancelled via OE: WRONG PT 08/04 UNK Blood Culture - CAN BLOOD Cancelled: Cancelled via OE: WRONG PT 07/26/2016 Ultrasound artery lower extremity with TASHA-B/L. B/L IMPRESSION: 1. Thrombosed left anterior tibial artery beginning in the proximal aspect. No reconstitution of the dorsalis pedis. 2. Heavy atherosclerosis in the proximal left lower extremity with a hemodynamically significant stenosis in the proximal left superficial femoral artery. 3. Monophasic arterial flow diffusely suggests diffuse calcific atherosclerosis. 4. Extensive atherosclerosis in the popliteal artery bilaterally. No definite aneurysm. 5. Bilateral lower extremity arterial runoff is recommended for further evaluation (CT, MRI, or conventional). 5. Findings called to Dr. Mullen. Discharge Instructions/Meds Discharge planning with home health. Discharge to home with the aid of his brother. Patient was ambulatory with crutches and with wheelchair. Recommending having wheel chair access to the home. She was discharged home on pain control. Take an oxycodone 5 mg tab every 6 hours as needed. Patient was also discharged on NicoDerm patch with encouragement to discontinue smoking. Patient was started on statin therapy including atorvastatin 40 mg by mouth daily. Patient should have follow-up visitation with general surgery and with primary care physician. Wound care follow-up should be implemented to review the stump. Patient will most likely need to have assessment for prosthetic fitting. Occupational or physical therapy means may be necessary. Recommending the patient continue with the Flomax 0.4 mg by mouth mouth daily. Continue with the Singulair 10 mg by mouth daily. Synthroid 100 g by mouth daily. Patient was discharged home on prescription for oxycodone 5-10 mg to be taken 4 times per day as needed. Patient should return to the emergency department or urgent care clinic with signs of infection worsening pain or any other emergent concern. Greater than 30 minutes was spent in the preparation of this discharge. E&M Codes Discharge: Inpt >30 min spent/[id number]
[2016-08-04 11:04] VITALS: BP 108/48
--- NOTE | 2016-08-04 11:22 | NUR ---
unable to see d/t high census. Will ck bk 5-11. per report from [facility] pt is transferring Bed <=> BSC or Chair or W/C. pt recommended to be up to chair or w/c for all meals and to push himself in the hallways in the w/c.
--- NOTE | 2016-08-04 13:50 | NUR ---
In to see patient one last time before discharge, went over all instructions and education, all questions answered, pt sent home with WAFFLE mattress,pump, instructions, WAFFLE chair pad and WAFFLE boots, extra Mepilex Border Post of dressing for left AKA incision and Sacrum foam dressing for Home Health. Spoke with nursing tech, needing more information about care pt need from nursing,clarifying orders to be faxed thru discharge planning. Reported to patients RN.
[2016-08-04] MEDS ORDERED: SENNA-LAX8.6 MG PO (14:04)
[2016-08-04] MEDS ORDERED: OXAYDO5 MG PO (14:14)
[2016-08-04] MEDS ORDERED: NICOTINE T21 MG/24 H TOP (14:15)
[2016-08-04] MEDS ORDERED: LIPITOR40 MG PO (14:16)
--- NOTE | 2016-08-04 14:23 | Provider's Discharge Care Plan ---
Problem, Goal, Plan Problem List 1. Status post above knee amputation of left lower extremity Goals: Diagnostic testing, Therapeutic intervention Instructions: wound care follow up 2. HLD (hyperlipidemia) Goals: Diagnostic testing, Prevent disease progress Instructions: start the atorvastatin 40 mg po daily 3. Amputation stump pain Goals: Diagnostic testing, Prevent disease progress, Therapeutic intervention Instructions: take the oxycodone 5mg po as needed. needed 4. PAD (peripheral artery disease) Goals: Diagnostic testing, Therapeutic intervention, follow up with vascular medicine Instructions: Follow up as directed, Stop smoking 5. Anemia Goals: Improve disease control, Therapeutic intervention Instructions: Follow up with your doctor and repeat and H&H. Take the ferrous sulfate 325 mg daily. 6. CAD (coronary artery disease) Goals: Improve function, Therapeutic intervention Instructions: primary care follow-up optimize heart medication 7. Nicotine dependence Goals: Therapeutic intervention Instructions: Stop smoking, nicotine patch has been provided 8. Hypothyroidism Goals: Therapeutic intervention Instructions: take medication as provided through your primary care provider 9. COPD (chronic obstructive pulmonary disease) Goals: Improve disease control, Improve function, Therapeutic intervention Instructions: Follow up as directed, Stop smoking
--- NOTE | 2016-08-04 15:59 | NUR ---
DC INSTRUCTIONS GIVEN TO PATIENT. 2 FOLLOW UP APPTS MADE, ONE FOR PCP AND ONE FOR [facility]. BROTHER TO TAKE PATIENT TO APPTS. HOME HEALTH TO FOLLOW UP WITH PATIENT. WOUND CARE NURSE WENT OVER INSTRUCTIONS TO PATIENT. DC'D IV TO LFA, HEMOSTASIS ACHIEVED, SECURED WITH GAUZE AND TAPE. TRANSPORTED TO BROTHER'S HOME BY AMBULANCE.
== END 2016-08-04 16:00 | disposition home or self-care (01) | DRG 240 ==
LOC: ED SRH 13:11 → TRANS SRH 16:59 → ACUTE2 SRH 18:04
PROVIDERS: Surgery; ADMIT Internal Medicine
PROC: 30233N1 Transfusion of Nonautologous Red Blood Cells into Peripheral Vein, Percutaneous Approach (ICD-10-PCS; 2016-07-29)
PROC: 0Y6G0ZZ Detachment at Left Knee Region, Open Approach (ICD-10-PCS; principal; 2016-07-29 14:30)
DX: I70.262 Atherosclerosis of native arteries of extremities with gangrene, left leg (principal); L03.116 Cellulitis of left lower limb; I82.442 Acute embolism and thrombosis of left tibial vein; C34.90 Malignant neoplasm of unspecified part of unspecified bronchus or lung; L97.521 Non-pressure chronic ulcer of other part of left foot limited to breakdown of skin; L03.032 Cellulitis of left toe; D64.9 Anemia, unspecified; F17.210 Nicotine dependence, cigarettes, uncomplicated; Z85.528 Personal history of other malignant neoplasm of kidney; J44.9 Chronic obstructive pulmonary disease, unspecified; I25.10 Atherosclerotic heart disease of native coronary artery without angina pectoris; I25.2 Old myocardial infarction; Z90.5 Acquired absence of kidney; Z92.3 Personal history of irradiation

== ENCOUNTER 2016-08-06 18:10 | Emergency (ER) | payer OTHER ==
[~2016-08-06 18:10] MED LIST: LIPITOR40 MG PO; NICOTINE T21 MG/24 H TOP; OXAYDO5 MG PO; SENNA-LAX8.6 MG PO
--- NOTE | 2016-08-06 18:45 | ED ORDER SUMMARY ---
..... Patient: SANA LITTLE OrderSheet [facility] VisitID: [id number] [address] [place] [address] 76y, M Registration Date/Time: 08/06/2016 ORDER SHEET Weight: 56.6 kg (estimated) Allergies: anibuse GENERAL ORDERS: MEDICATION ORDERS: Dilaudid IM 1 mg (HIGH ALERT MEDICATION, NOW) (18:37 08/06/2016 HBivens A.R.N.P.) (Ack 18:38 RMarsden R.N.) (18:47 RMarsden R.N.) Zofran ODT PO 4 mg (NOW) (18:37 08/06/2016 HBivens A.R.N.P.) (Ack 18:38 RMarsden R.N.) (18:44 RMarsden R.N.) IV FLUIDS: ORDER SHEET NOTES: [Electronically signed by Rosalba Rangel R.N. (18:58 08/06/2016)] [Electronically signed by Divina WadsworthR.N.P. (20:40 08/06/2016)] [Electronically locked/signed by Rosalba Rangel R.N. (18:58 08/06/2016)]
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
--- NOTE | 2016-08-06 18:45 | ED ORDER SUMMARY ---
..... Patient: SANA LITTLE OrderSheet [facility] VisitID: [id number] [address] [place] [address] 76y, M Registration Date/Time: 08/06/2016 ORDER SHEET Weight: 56.6 kg (estimated) Allergies: anibuse GENERAL ORDERS: MEDICATION ORDERS: Dilaudid IM 1 mg (HIGH ALERT MEDICATION, NOW) (18:37 08/06/2016 HBivens A.R.N.P.) (Ack 18:38 RMarsden R.N.) (18:47 RMarsden R.N.) Zofran ODT PO 4 mg (NOW) (18:37 08/06/2016 HBivens A.R.N.P.) (Ack 18:38 RMarsden R.N.) (18:44 RMarsden R.N.) IV FLUIDS: ORDER SHEET NOTES: [Electronically signed by Rosalba Rangel R.N. (18:58 08/06/2016)] [Electronically signed by Divina WadsworthR.N.P. (20:40 08/06/2016)] [Electronically locked/signed by Rosalba Rangel R.N. (18:58 08/06/2016)]
--- NOTE | 2016-08-06 20:41 | ED MED RECONCILIATION SUMMARY ---
Patient: SANA LITTLE Medication Reconciliation Report [facility] VisitID: [id number] [address] [place] [address] 76y, M Registration Date/Time: 08/06/2016 Weight: 56.6 kg Height/Length: 71 in. BMI: 17.4 ALLERGIES: anibuse The patient's Home Medications are listed below: THE FOLLOWING MEDICATIONS NEED TO BE RECONCILED: Levothyroxine Sodium Oral Montelukast Sodium Oral Morphine Sulfate 15mg extended release Omeprazole Oral OxyCODONE HCl Oral 10 mg Tamsulosin HCl Oral The source(s) of the original Home Medication information: Not obtained. The following Medications were given to the patient in the Emergency Department: Zofran ODT [PO] PO 4 mg, administered: 08/06/2016 6:44:00 PM Dilaudid [IM] IM 1 mg, administered: 08/06/2016 6:46:00 PM The following Medications were prescribed to the patient: [place] 5 mg / 325 mg tablets: take 1 orally as needed for pain. Dispense thirty (30). No refill. -- Divina Wadsworth A.R.N.P. Motrin 800 mg tablets: take 1 tablet orally every 8 hours as needed for pain. Dispense thirty (30). No refills. Substitution is permissible. -- Divina Wadsworth A.R.N.P.
--- NOTE | 2016-08-06 20:41 | ED MAR SUMMARY ---
..... Medication Administration Record [facility] [address] [place] [address] Patient: SANA LITTLE Visit ID: [id number] 76y, M Weight: 56.6 kg Height/Length: 71 in BMI: 17.4 ALLERGIES: anibuse Given 18:44 08/06/2016 Rosalba Rangel, RTreN. Medication Administered: ZOFRAN ODT [PO] (ONDANSETRON), Dose: 4 mg Oral Disintegrating Tablets PO. Medication Ordered: Zofran ODT PO 4 mg (NOW). Given 18:46 08/06/2016 Rosalba Rangel, R.N. Medication Administered: DILAUDID [IM] (HYDROMORPHONE HCL PF), Dose: 1 mg IM. Medication Ordered: Dilaudid IM 1 mg (HIGH ALERT MEDICATION, NOW).
--- NOTE | 2016-08-06 20:41 | ED DISCHARGE INSTRUCTIONS ---
Patient: SANA LITTLE General Instructions [facility] VisitID: [id number] [place] [address] 76y, M Registration Date/Time: 08/06/2016 Medication refill. INSTRUCTIONS Warnings: GENERAL WARNINGS: Return or contact your physician immediately if your condition worsens or changes unexpectedly, if not improving as expected, or if other problems arise. Specifically return if problem worsens. Prescription Medications: [place] 5 mg / 325 mg tablets: take 1 orally as needed for pain. Dispense thirty (30). No refill. Motrin 800 mg tablets: take 1 tablet orally every 8 hours as needed for pain. Dispense thirty (30). No refills. Substitution is permissible. Follow-up: Follow up with your doctor in about three days even if well. Call for an appointment. Summary of care provided to patient. Understanding of the discharge instructions verbalized by patient. ADDITIONAL INFORMATION Hydrocodone Bitartrate, Acetaminophen Oral tablet What is this medicine? ACETAMINOPHEN; HYDROCODONE (a set a AYAAN odalys fen; lamonte droe KOE done) is a pain reliever. It is used to treat mild to moderate pain. How should I use this medicine? Take this medicine by mouth. Swallow it with a full glass of water. Follow the directions on the prescription label. If the medicine upsets your stomach, take the medicine with food or milk. Do not take more than you are told to take. Talk to your dry transfer worker regarding the use of this medicine in children. This medicine is not approved for use in children. What side effects may I notice from receiving this medicine? Side effects that you should report to your doctor or health date night caregiver as soon as possible: allergic reactions like skin rash, itching or hives, swelling of the face, lips, or tongue breathing problems confusion feeling faint or lightheaded, falls stomach pain yellowing of the eyes or skin Side effects that usually do not require medical attention (report to your doctor or health date night caregiver if they continue or are bothersome): nausea, vomiting stomach upset What may interact with this medicine? alcohol antihistamines isoniazid medicines for depression, anxiety, or psychotic disturbances medicines for sleep muscle relaxants naltrexone narcotic medicines (opiates) for pain phenobarbital ritonavir tramadol What if I miss a dose? If you miss a dose, take it as soon as you can. If it is almost time for your next dose, take only that dose. Do not take double or extra doses. Where should I keep my medicine? Keep out of the reach of children. This medicine can be abused. Keep your medicine in a safe place to protect it from theft. Do not share this medicine with anyone. Selling or giving away this medicine is dangerous and against the law. Store at room temperature between 15 and 30 degrees C (59 and 86 degrees F). Protect from light. Keep container tightly closed. Throw away any unused medicine after the expiration date. Discard unused medicine and used packaging carefully. Pets and children can be harmed if they find used or lost packages. What should I tell my health care provider before I take this medicine? They need to know if you have any of these conditions: brain tumor Crohn's disease, inflammatory bowel disease, or ulcerative colitis drink more than 3 alcohol-containing drinks per day drug abuse or addiction head injury heart or circulation problems kidney disease or problems going to the bathroom liver disease lung disease, asthma, or breathing problems an unusual or allergic reaction to acetaminophen, hydrocodone, other opioid analgesics, other medicines, foods, dyes, or preservatives or trying to get breast-feeding What should I watch for while using this medicine? Tell your doctor or health date night caregiver if your pain does not go away, if it gets worse, or if you have new or a different type of pain. You may develop tolerance to the medicine. Tolerance means that you will need a higher dose of the medicine for pain relief. Tolerance is normal and is expected if you take the medicine for a long time. Do not suddenly stop taking your medicine because you may develop a severe reaction. Your body becomes used to the medicine. This does NOT mean you are addicted. Addiction is a behavior related to getting and using a drug for a non-medical reason. If you have pain, you have a medical reason to take pain medicine. Your doctor will tell you how much medicine to take. If your doctor wants you to stop the medicine, the dose will be slowly lowered over time to avoid any side effects. You may get drowsy or dizzy when you first start taking the medicine or change doses. Do not drive, use machinery, or do anything that may be dangerous until you know how the medicine affects you. Stand or sit up slowly. There are different types of narcotic medicines (opiates) for pain. If you take more than one type at the same time, you may have more side effects. Give your health care provider a list of all medicines you use. Your doctor will tell you how much medicine to take. Do not take more medicine than directed. Call emergency for help if you have problems breathing. The medicine will cause constipation. Try to have a bowel movement at least every 2 to 3 days. If you do not have a bowel movement for 3 days, call your doctor or health date night caregiver. Too much acetaminophen can be very dangerous. Do not take Tylenol (acetaminophen) or medicines that contain acetaminophen with this medicine. Many non-prescription medicines contain acetaminophen. Always read the labels carefully. Ibuprofen Oral tablet What is this medicine? IBUPROFEN (eye BYOO proe fen) is a non-steroidal anti-inflammatory drug (NSAID). It is used for dental pain, fever, headaches or migraines, osteoarthritis, rheumatoid arthritis, or painful monthly periods. It can also relieve minor aches and pains caused by a cold, flu, or sore throat. How should I use this medicine? Take this medicine by mouth with a glass of water. Follow the directions on the prescription label. Take this medicine with food if your stomach gets upset. Try to not lie down for at least 10 minutes after you take the medicine. Take your medicine at regular intervals. Do not take your medicine more often than directed. A special MedGuide will be given to you by the pharmacist with each prescription and refill. Be sure to read this information carefully each time. Talk to your dry transfer worker regarding the use of this medicine in children. Special care may be needed. What side effects may I notice from receiving this medicine? Side effects that you should report to your doctor or health date night caregiver as soon as possible: allergic reactions like skin rash, itching or hives, swelling of the face, lips, or tongue black or bloody stools, blood in the urine or in vomit breathing problems changes in vision chest pain general ill feeling or flu-like symptoms nausea or vomiting redness, blistering, peeling or loosening of the skin, including inside the mouth slurred speech or weakness on one side of the body stomach pain unexplained weight gain or swelling unusually weak or tired yellowing of eyes or skin Side effects that usually do not require medical attention (report to your doctor or health date night caregiver if they continue or are bothersome): constipation or diarrhea dizziness gas or heartburn stomach upset What may interact with this medicine? Do not take this medicine with any of the following medications: cidofovir ketorolac methotrexate pemetrexed This medicine may also interact with the following medications: alcohol aspirin diuretics lithium other drugs for inflammation like prednisone warfarin What if I miss a dose? If you miss a dose, take it as soon as you can. If it is almost time for your next dose, take only that dose. Do not take double or extra doses. Where should I keep my medicine? Keep out of the reach of children. Store at room temperature between 15 and 30 degrees C (59 and 86 degrees F). Keep container tightly closed. Throw away any unused medicine after the expiration date. What should I tell my health care provider before I take this medicine? They need to know if you have any of these conditions: asthma cigarette smoker drink more than 3 alcohol containing drinks a day heart disease or circulation problems such as heart failure or leg edema (fluid retention) high blood pressure kidney disease liver disease stomach bleeding or ulcers an unusual or allergic reaction to ibuprofen, aspirin, other NSAIDS, other medicines, foods, dyes, or preservatives or trying to get breast-feeding What should I watch for while using this medicine? Tell your doctor or healthcare professional if your symptoms do not start to get better or if they get worse. This medicine does not prevent heart attack or stroke. In fact, this medicine may increase the chance of a heart attack or stroke. The chance may increase with longer use of this medicine and in people who have heart disease. If you take aspirin to prevent heart attack or stroke, talk with your doctor or health date night caregiver. Do not take other medicines that contain aspirin, ibuprofen, or naproxen with this medicine. Side effects such as stomach upset, nausea, or ulcers may be more likely to occur. Many medicines available without a prescription should not be taken with this medicine. This medicine can cause ulcers and bleeding in the stomach and intestines at any time during treatment. Ulcers and bleeding can happen without warning symptoms and can cause . To reduce your risk, do not smoke cigarettes or drink alcohol while you are taking this medicine. You may get drowsy or dizzy. Do not drive, use machinery, or do anything that needs mental alertness until you know how this medicine affects you. Do not stand or sit up quickly, especially if you are an older patient. This reduces the risk of dizzy or fainting spells. This medicine can cause you to bleed more easily. Try to avoid damage to your teeth and gums when you brush or floss your teeth. You have been given the following additional information: Hydrocodone Bitartrate, Acetaminophen Oral tablet Ibuprofen Oral tablet (Electronically signed by Divina Wadsworth A.R.N.P. 08/06/2016 20:40)
--- NOTE | 2016-08-06 20:41 | ED DISCHARGE INSTRUCTIONS ---
Patient: SANA LITTLE General Instructions Formerly [facility] VisitID: [id number] [place] [address] 76y, M Registration Date/Time: 08/06/2016 Medication refill. INSTRUCTIONS Warnings: GENERAL WARNINGS: Return or contact your physician immediately if your condition worsens or changes unexpectedly, if not improving as expected, or if other problems arise. Specifically return if problem worsens. Prescription Medications: Ventura 5 mg / 325 mg tablets: take 1 orally as needed for pain. Dispense thirty (30). No refill. Motrin 800 mg tablets: take 1 tablet orally every 8 hours as needed for pain. Dispense thirty (30). No refills. Substitution is permissible. Follow-up: Follow up with your doctor in about three days even if well. Call for an appointment. Summary of care provided to patient. Understanding of the discharge instructions verbalized by patient. ADDITIONAL INFORMATION Hydrocodone Bitartrate, Acetaminophen Oral tablet What is this medicine? ACETAMINOPHEN; HYDROCODONE (a set a AYAAN odalys fen; lamonte droe KOE done) is a pain reliever. It is used to treat mild to moderate pain. How should I use this medicine? Take this medicine by mouth. Swallow it with a full glass of water. Follow the directions on the prescription label. If the medicine upsets your stomach, take the medicine with food or milk. Do not take more than you are told to take. Talk to your motor rebuilder regarding the use of this medicine in children. This medicine is not approved for use in children. What side effects may I notice from receiving this medicine? Side effects that you should report to your doctor or health home health care social worker as soon as possible: allergic reactions like skin rash, itching or hives, swelling of the face, lips, or tongue breathing problems confusion feeling faint or lightheaded, falls stomach pain yellowing of the eyes or skin Side effects that usually do not require medical attention (report to your doctor or health home health care social worker if they continue or are bothersome): nausea, vomiting stomach upset What may interact with this medicine? alcohol antihistamines isoniazid medicines for depression, anxiety, or psychotic disturbances medicines for sleep muscle relaxants naltrexone narcotic medicines (opiates) for pain phenobarbital ritonavir tramadol What if I miss a dose? If you miss a dose, take it as soon as you can. If it is almost time for your next dose, take only that dose. Do not take double or extra doses. Where should I keep my medicine? Keep out of the reach of children. This medicine can be abused. Keep your medicine in a safe place to protect it from theft. Do not share this medicine with anyone. Selling or giving away this medicine is dangerous and against the law. Store at room temperature between 15 and 30 degrees C (59 and 86 degrees F). Protect from light. Keep container tightly closed. Throw away any unused medicine after the expiration date. Discard unused medicine and used packaging carefully. Pets and children can be harmed if they find used or lost packages. What should I tell my health care provider before I take this medicine? They need to know if you have any of these conditions: brain tumor Crohn's disease, inflammatory bowel disease, or ulcerative colitis drink more than 3 alcohol-containing drinks per day drug abuse or addiction head injury heart or circulation problems kidney disease or problems going to the bathroom liver disease lung disease, asthma, or breathing problems an unusual or allergic reaction to acetaminophen, hydrocodone, other opioid analgesics, other medicines, foods, dyes, or preservatives or trying to get breast-feeding What should I watch for while using this medicine? Tell your doctor or health home health care social worker if your pain does not go away, if it gets worse, or if you have new or a different type of pain. You may develop tolerance to the medicine. Tolerance means that you will need a higher dose of the medicine for pain relief. Tolerance is normal and is expected if you take the medicine for a long time. Do not suddenly stop taking your medicine because you may develop a severe reaction. Your body becomes used to the medicine. This does NOT mean you are addicted. Addiction is a behavior related to getting and using a drug for a non-medical reason. If you have pain, you have a medical reason to take pain medicine. Your doctor will tell you how much medicine to take. If your doctor wants you to stop the medicine, the dose will be slowly lowered over time to avoid any side effects. You may get drowsy or dizzy when you first start taking the medicine or change doses. Do not drive, use machinery, or do anything that may be dangerous until you know how the medicine affects you. Stand or sit up slowly. There are different types of narcotic medicines (opiates) for pain. If you take more than one type at the same time, you may have more side effects. Give your health care provider a list of all medicines you use. Your doctor will tell you how much medicine to take. Do not take more medicine than directed. Call emergency for help if you have problems breathing. The medicine will cause constipation. Try to have a bowel movement at least every 2 to 3 days. If you do not have a bowel movement for 3 days, call your doctor or health home health care social worker. Too much acetaminophen can be very dangerous. Do not take Tylenol (acetaminophen) or medicines that contain acetaminophen with this medicine. Many non-prescription medicines contain acetaminophen. Always read the labels carefully. Ibuprofen Oral tablet What is this medicine? IBUPROFEN (eye BYOO proe fen) is a non-steroidal anti-inflammatory drug (NSAID). It is used for dental pain, fever, headaches or migraines, osteoarthritis, rheumatoid arthritis, or painful monthly periods. It can also relieve minor aches and pains caused by a cold, flu, or sore throat. How should I use this medicine? Take this medicine by mouth with a glass of water. Follow the directions on the prescription label. Take this medicine with food if your stomach gets upset. Try to not lie down for at least 10 minutes after you take the medicine. Take your medicine at regular intervals. Do not take your medicine more often than directed. A special MedGuide will be given to you by the pharmacist with each prescription and refill. Be sure to read this information carefully each time. Talk to your motor rebuilder regarding the use of this medicine in children. Special care may be needed. What side effects may I notice from receiving this medicine? Side effects that you should report to your doctor or health home health care social worker as soon as possible: allergic reactions like skin rash, itching or hives, swelling of the face, lips, or tongue black or bloody stools, blood in the urine or in vomit breathing problems changes in vision chest pain general ill feeling or flu-like symptoms nausea or vomiting redness, blistering, peeling or loosening of the skin, including inside the mouth slurred speech or weakness on one side of the body stomach pain unexplained weight gain or swelling unusually weak or tired yellowing of eyes or skin Side effects that usually do not require medical attention (report to your doctor or health home health care social worker if they continue or are bothersome): constipation or diarrhea dizziness gas or heartburn stomach upset What may interact with this medicine? Do not take this medicine with any of the following medications: cidofovir ketorolac methotrexate pemetrexed This medicine may also interact with the following medications: alcohol aspirin diuretics lithium other drugs for inflammation like prednisone warfarin What if I miss a dose? If you miss a dose, take it as soon as you can. If it is almost time for your next dose, take only that dose. Do not take double or extra doses. Where should I keep my medicine? Keep out of the reach of children. Store at room temperature between 15 and 30 degrees C (59 and 86 degrees F). Keep container tightly closed. Throw away any unused medicine after the expiration date. What should I tell my health care provider before I take this medicine? They need to know if you have any of these conditions: asthma cigarette smoker drink more than 3 alcohol containing drinks a day heart disease or circulation problems such as heart failure or leg edema (fluid retention) high blood pressure kidney disease liver disease stomach bleeding or ulcers an unusual or allergic reaction to ibuprofen, aspirin, other NSAIDS, other medicines, foods, dyes, or preservatives or trying to get breast-feeding What should I watch for while using this medicine? Tell your doctor or healthcare professional if your symptoms do not start to get better or if they get worse. This medicine does not prevent heart attack or stroke. In fact, this medicine may increase the chance of a heart attack or stroke. The chance may increase with longer use of this medicine and in people who have heart disease. If you take aspirin to prevent heart attack or stroke, talk with your doctor or health home health care social worker. Do not take other medicines that contain aspirin, ibuprofen, or naproxen with this medicine. Side effects such as stomach upset, nausea, or ulcers may be more likely to occur. Many medicines available without a prescription should not be taken with this medicine. This medicine can cause ulcers and bleeding in the stomach and intestines at any time during treatment. Ulcers and bleeding can happen without warning symptoms and can cause . To reduce your risk, do not smoke cigarettes or drink alcohol while you are taking this medicine. You may get drowsy or dizzy. Do not drive, use machinery, or do anything that needs mental alertness until you know how this medicine affects you. Do not stand or sit up quickly, especially if you are an older patient. This reduces the risk of dizzy or fainting spells. This medicine can cause you to bleed more easily. Try to avoid damage to your teeth and gums when you brush or floss your teeth. You have been given the following additional information: Hydrocodone Bitartrate, Acetaminophen Oral tablet Ibuprofen Oral tablet (Electronically signed by Divina Wadsworth A.R.N.P. 08/06/2016 20:40)
--- NOTE | 2016-08-06 20:41 | ED MED RECONCILIATION SUMMARY ---
Patient: SANA LITTLE Medication Reconciliation Report [facility] VisitID: [id number] [address] [place] [address] 76y, M Registration Date/Time: 08/06/2016 Weight: 56.6 kg Height/Length: 71 in. BMI: 17.4 ALLERGIES: anibuse The patient's Home Medications are listed below: THE FOLLOWING MEDICATIONS NEED TO BE RECONCILED: Levothyroxine Sodium Oral Montelukast Sodium Oral Morphine Sulfate 15mg extended release Omeprazole Oral OxyCODONE HCl Oral 10 mg Tamsulosin HCl Oral The source(s) of the original Home Medication information: Not obtained. The following Medications were given to the patient in the Emergency Department: Zofran ODT [PO] PO 4 mg, administered: 08/06/2016 6:44:00 PM Dilaudid [IM] IM 1 mg, administered: 08/06/2016 6:46:00 PM The following Medications were prescribed to the patient: [place] 5 mg / 325 mg tablets: take 1 orally as needed for pain. Dispense thirty (30). No refill. -- Divina Wadsworth A.R.N.P. Motrin 800 mg tablets: take 1 tablet orally every 8 hours as needed for pain. Dispense thirty (30). No refills. Substitution is permissible. -- Divina Wadsworth A.R.N.P.
--- NOTE | 2016-08-06 20:41 | ED MAR SUMMARY ---
..... Medication Administration [facility] [address] [place] [address] Patient: SANA LITTLE Visit ID: [id number] 76y, M Weight: 56.6 kg Height/Length: 71 in BMI: 17.4 ALLERGIES: anibuse Given 18:44 08/06/2016 Rosalba Rangel, RTreN. Medication Administered: ZOFRAN ODT [PO] (ONDANSETRON), Dose: 4 mg Oral Disintegrating Tablets PO. Medication Ordered: Zofran ODT PO 4 mg (NOW). Given 18:46 08/06/2016 Rosalba Rangel, R.N. Medication Administered: DILAUDID [IM] (HYDROMORPHONE HCL PF), Dose: 1 mg IM. Medication Ordered: Dilaudid IM 1 mg (HIGH ALERT MEDICATION, NOW).
== END 2016-08-06 18:57 | disposition home or self-care (01) ==
LOC: ED SRH 18:10
DX: Z76.0 Encounter for issue of repeat prescription (principal); Z89.612 Acquired absence of left leg above knee; J43.9 Emphysema, unspecified; I10 Essential (primary) hypertension; Z72.0 Tobacco use; Z79.891 Long term (current) use of opiate analgesic; Z79.899 Other long term (current) drug therapy

== ENCOUNTER 2016-09-17 12:01 | Emergency (ER) | payer OTHER ==
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
--- NOTE | 2016-09-23 18:42 | ED MED RECONCILIATION SUMMARY ---
Patient: SIDNEY SANA Medication Reconciliation Report [facility] VisitID: [id number] [place] [address] 76y, M Registration Date/Time: 09/17/2016 Weight: 46.7 kg Height/Length: 76 in. BMI: 12.5 ALLERGIES: Antabuse The patient's Home Medications are listed below: CONTINUE TAKING THE FOLLOWING MEDICATIONS: Levothyroxine Sodium Oral Montelukast Sodium Oral Morphine Sulfate 15mg extended release Omeprazole Oral OxyCODONE HCl Oral 10 mg Tamsulosin HCl Oral The source(s) of the original Home Medication information: Not obtained. The following Medications were given to the patient in the Emergency Department: None. The following Medications were prescribed to the patient: Gabapentin 300 mg capsules: take 1 orally every 8 hours. Dispense forty-five (45). No refill. -- Efren Domínguez Dr.
--- NOTE | 2016-09-23 18:42 | ED MAR SUMMARY ---
..... Medication Administration Record [facility] [address], [place] [id number] Patient: SANA LITTLE Visit ID: [id number] 76y, M Weight: 46.7 kg Height/Length: 76 in BMI: 12.5 ALLERGIES: Antabuse
--- NOTE | 2016-09-23 18:42 | ED MED RECONCILIATION SUMMARY ---
Patient: SIDNEY SANA Medication Reconciliation Report [facility] VisitID: [id number] [place] [address] 76y, M Registration Date/Time: 09/17/2016 Weight: 46.7 kg Height/Length: 76 in. BMI: 12.5 ALLERGIES: Antabuse The patient's Home Medications are listed below: CONTINUE TAKING THE FOLLOWING MEDICATIONS: Levothyroxine Sodium Oral Montelukast Sodium Oral Morphine Sulfate 15mg extended release Omeprazole Oral OxyCODONE HCl Oral 10 mg Tamsulosin HCl Oral The source(s) of the original Home Medication information: Not obtained. The following Medications were given to the patient in the Emergency Department: None. The following Medications were prescribed to the patient: Gabapentin 300 mg capsules: take 1 orally every 8 hours. Dispense forty-five (45). No refill. -- Efren Domínguez Dr.
--- NOTE | 2016-09-23 18:42 | ED MAR SUMMARY ---
..... Medication Administration Record [facility] [address], [place] [id number] Patient: SANA LITTLE Visit ID: [id number] 76y, M Weight: 46.7 kg Height/Length: 76 in BMI: 12.5 ALLERGIES: Antabuse
--- NOTE | 2016-09-23 18:42 | ED DISCHARGE INSTRUCTIONS ---
Patient: SANA LITTLE General Instructions [facility] VisitID: [id number] [place] [address] 76y, M Registration Date/Time: 09/17/2016 (Phantom Limb Pain). INSTRUCTIONS Apply ice for 20 minutes four times a day until better. Don't apply ice directly to skin. Your Current Medications: CONTINUE TAKING THE FOLLOWING MEDICATIONS: Levothyroxine Sodium Oral. Montelukast Sodium Oral. Morphine Sulfate* : 15mg extended release. Omeprazole Oral. OxyCODONE HCl Oral : 10 mg, prn. Tamsulosin HCl Oral. Prescription Medications: Gabapentin 300 mg capsules: take 1 orally every 8 hours. Dispense forty-five (45). No refill. Follow-up: Screening today revealed the patient's blood pressure to be in the normal range. Follow-up with: [facility], , [address] [place] [address], [address], [place] [address] Follow up in about three days. Call for an appointment. ADDITIONAL INFORMATION Gabapentin Oral tablet What is this medicine? GABAPENTIN (GA ba pen tin) is used to control partial seizures in adults with epilepsy. It is also used to treat certain types of nerve pain. How should I use this medicine? Take this medicine by mouth. Swallow it with a drink of water. Follow the directions on the prescription label. If this medicine upsets your stomach, take it with food or milk. Take your medicine at regular intervals. Do not take it more often than directed. If you are directed to break the 600 or 800 mg tablets in half as part of your dose, the extra half tablet should be used for the next dose. If you have not used the extra half tablet within 3 days, it should be thrown away. A special MedGuide will be given to you by the pharmacist with each prescription and refill. Be sure to read this information carefully each time. Talk to your banquet cook regarding the use of this medicine in children. Special care may be needed. What side effects may I notice from receiving this medicine? Side effects that you should report to your doctor or health complex care nurse as soon as possible: allergic reactions like skin rash, itching or hives, swelling of the face, lips, or tongue worsening of mood, thoughts or actions of suicide or dying Side effects that usually do not require medical attention (report to your doctor or health complex care nurse if they continue or are bothersome): constipation difficulty walking or controlling muscle movements dizziness nausea slurred speech tiredness tremors weight gain What may interact with this medicine? Do not take this medicine with any of the following medications: other gabapentin products This medicine may also interact with the following medications: alcohol antacids antihistamines for allergy, cough and cold certain medicines for anxiety or sleep certain medicines for depression or psychotic disturbances homatropine; hydrocodone naproxen narcotic medicines (opiates) for pain phenothiazines like chlorpromazine, mesoridazine, prochlorperazine, thioridazine What if I miss a dose? If you miss a dose, take it as soon as you can. If it is almost time for your next dose, take only that dose. Do not take double or extra doses. Where should I keep my medicine? Keep out of reach of children. Store at room temperature between 15 and 30 degrees C (59 and 86 degrees F). Throw away any unused medicine after the expiration date. What should I tell my health care provider before I take this medicine? They need to know if you have any of these conditions: kidney disease suicidal thoughts, plans, or attempt; a previous suicide attempt by you or a family member an unusual or allergic reaction to gabapentin, other medicines, foods, dyes, or preservatives or trying to get breast-feeding What should I watch for while using this medicine? Visit your doctor or health complex care nurse for regular checks on your progress. You may want to keep a record at home of how you feel your condition is responding to treatment. You may want to share this information with your doctor or health complex care nurse at each visit. You should contact your doctor or health complex care nurse if your seizures get worse or if you have any new types of seizures. Do not stop taking this medicine or any of your seizure medicines unless instructed by your doctor or health complex care nurse. Stopping your medicine suddenly can increase your seizures or their severity. Wear a medical identification bracelet or chain if you are taking this medicine for seizures, and carry a card that lists all your medications. You may get drowsy, dizzy, or have blurred vision. Do not drive, use machinery, or do anything that needs mental alertness until you know how this medicine affects you. To reduce dizzy or fainting spells, do not sit or stand up quickly, especially if you are an older patient. Alcohol can increase drowsiness and dizziness. Avoid alcoholic drinks. Your mouth may get dry. Chewing sugarless gum or sucking hard candy, and drinking plenty of water will help. The use of this medicine may increase the chance of suicidal thoughts or actions. Pay special attention to how you are responding while on this medicine. Any worsening of mood, or thoughts of suicide or dying should be reported to your health complex care nurse right away. Women who become while using this medicine may enroll in the [place]iepileptic Drug Registry by calling . This registry collects information about the safety of antiepileptic drug use during . You have been given the following additional information: Gabapentin Oral tablet (Electronically signed by Efren Domínguez Dr. 09/17/2016 17:51)
--- NOTE | 2016-09-23 18:42 | ED DISCHARGE INSTRUCTIONS ---
Patient: SANA LITTLE General Instructions [facility] VisitID: [id number] [place] [address] 76y, M Registration Date/Time: 09/17/2016 (Phantom Limb Pain). INSTRUCTIONS Apply ice for 20 minutes four times a day until better. Don't apply ice directly to skin. Your Current Medications: CONTINUE TAKING THE FOLLOWING MEDICATIONS: Levothyroxine Sodium Oral. Montelukast Sodium Oral. Morphine Sulfate* : 15mg extended release. Omeprazole Oral. OxyCODONE HCl Oral : 10 mg, prn. Tamsulosin HCl Oral. Prescription Medications: Gabapentin 300 mg capsules: take 1 orally every 8 hours. Dispense forty-five (45). No refill. Follow-up: Screening today revealed the patient's blood pressure to be in the normal range. Follow-up with: [facility], , [address] [place] [address], [address], [place] [address] Follow up in about three days. Call for an appointment. ADDITIONAL INFORMATION Gabapentin Oral tablet What is this medicine? GABAPENTIN (GA ba pen tin) is used to control partial seizures in adults with epilepsy. It is also used to treat certain types of nerve pain. How should I use this medicine? Take this medicine by mouth. Swallow it with a drink of water. Follow the directions on the prescription label. If this medicine upsets your stomach, take it with food or milk. Take your medicine at regular intervals. Do not take it more often than directed. If you are directed to break the 600 or 800 mg tablets in half as part of your dose, the extra half tablet should be used for the next dose. If you have not used the extra half tablet within 3 days, it should be thrown away. A special MedGuide will be given to you by the pharmacist with each prescription and refill. Be sure to read this information carefully each time. Talk to your financial analyst intern regarding the use of this medicine in children. Special care may be needed. What side effects may I notice from receiving this medicine? Side effects that you should report to your doctor or health rn wound care as soon as possible: allergic reactions like skin rash, itching or hives, swelling of the face, lips, or tongue worsening of mood, thoughts or actions of suicide or dying Side effects that usually do not require medical attention (report to your doctor or health rn wound care if they continue or are bothersome): constipation difficulty walking or controlling muscle movements dizziness nausea slurred speech tiredness tremors weight gain What may interact with this medicine? Do not take this medicine with any of the following medications: other gabapentin products This medicine may also interact with the following medications: alcohol antacids antihistamines for allergy, cough and cold certain medicines for anxiety or sleep certain medicines for depression or psychotic disturbances homatropine; hydrocodone naproxen narcotic medicines (opiates) for pain phenothiazines like chlorpromazine, mesoridazine, prochlorperazine, thioridazine What if I miss a dose? If you miss a dose, take it as soon as you can. If it is almost time for your next dose, take only that dose. Do not take double or extra doses. Where should I keep my medicine? Keep out of reach of children. Store at room temperature between 15 and 30 degrees C (59 and 86 degrees F). Throw away any unused medicine after the expiration date. What should I tell my health care provider before I take this medicine? They need to know if you have any of these conditions: kidney disease suicidal thoughts, plans, or attempt; a previous suicide attempt by you or a family member an unusual or allergic reaction to gabapentin, other medicines, foods, dyes, or preservatives or trying to get breast-feeding What should I watch for while using this medicine? Visit your doctor or health rn wound care for regular checks on your progress. You may want to keep a record at home of how you feel your condition is responding to treatment. You may want to share this information with your doctor or health rn wound care at each visit. You should contact your doctor or health rn wound care if your seizures get worse or if you have any new types of seizures. Do not stop taking this medicine or any of your seizure medicines unless instructed by your doctor or health rn wound care. Stopping your medicine suddenly can increase your seizures or their severity. Wear a medical identification bracelet or chain if you are taking this medicine for seizures, and carry a card that lists all your medications. You may get drowsy, dizzy, or have blurred vision. Do not drive, use machinery, or do anything that needs mental alertness until you know how this medicine affects you. To reduce dizzy or fainting spells, do not sit or stand up quickly, especially if you are an older patient. Alcohol can increase drowsiness and dizziness. Avoid alcoholic drinks. Your mouth may get dry. Chewing sugarless gum or sucking hard candy, and drinking plenty of water will help. The use of this medicine may increase the chance of suicidal thoughts or actions. Pay special attention to how you are responding while on this medicine. Any worsening of mood, or thoughts of suicide or dying should be reported to your health rn wound care right away. Women who become while using this medicine may enroll in the [place]iepileptic Drug Registry by calling . This registry collects information about the safety of antiepileptic drug use during . You have been given the following additional information: Gabapentin Oral tablet (Electronically signed by Efren Domínguez Dr. 09/17/2016 17:51)
== END 2016-09-17 13:22 | disposition home or self-care (01) ==
LOC: ED SRH 12:01
DX: G54.6 Phantom limb syndrome with pain (principal); I10 Essential (primary) hypertension; J45.909 Unspecified asthma, uncomplicated; Z79.899 Other long term (current) drug therapy; F17.210 Nicotine dependence, cigarettes, uncomplicated; Z88.8 Allergy status to other drugs, medicaments and biological substances

== ENCOUNTER 2016-09-30 15:18 | Emergency (ER) | payer OTHER ==
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
--- NOTE | 2016-09-30 17:44 | ED ORDER SUMMARY ---
..... Patient: SANA LITTLE OrderSheet [facility] VisitID: [id number] [place] [address] 76y, M Registration Date/Time: 09/30/2016 ORDER SHEET Weight: 45.3 kg (stated) Allergies: Antabuse GENERAL ORDERS: CBC w Diff Urgent (15:42 09/30/2016 EKoroleva P.A.-C) (Ack 15:43 KHoerner) (15:57 SRoberts R.N.) CMP Urgent (15:42 09/30/2016 EKoroleva P.A.-C) (Ack 15:43 KHoerner) (15:57 SRoberts R.N.) UA-Culture if indicated Urgent (15:42 09/30/2016 EKoroleva P.A.-C) (Ack 15:43 KHoerner) (Cancelled: Patient [id number] SRoberts R.N.) Lipase Urgent (15:42 09/30/2016 EKoroleva P.A.-C) (Ack 15:43 KHoerner) (15:57 SRoberts R.N.) Stool for C. Difficile Urgent (16:44 09/30/2016 EKoroleva P.A.-C) (Ack 16:45 KHoerner) (Cancelled: Unable to Bfdnred31:54 SRoberts R.N.) Stool WBC Urgent (16:44 09/30/2016 EKoroleva P.A.-C) (Ack 16:45 KHoerner) (Cancelled: Unable to Rzuxqvp79:55 SRoberts R.N.) Culture, Stool Urgent (16:44 09/30/2016 EKoroleva P.A.-C) (Ack 16:45 KHoerner) (Cancelled: Unable to Ahzgqxm22:55 SRoberts R.N.) Ethyl Alcohol Urgent (17:07 09/30/2016 EKoroleva P.A.-C) (Ack 17:10 KHoerner) (17:10 KHoerner) MEDICATION ORDERS: IV FLUIDS: IV NS : initial bolus 1000 mL (1000 mL/hr), then 1000 mL/hr for X1 (NOW); Jones (15:42 09/30/2016 EKtaco P.A.-C) (15:58 Tamiko R.N.) Dilaudid IV 1 mg (HIGH ALERT MEDICATION, NOW) (15:43 09/30/2016 Rebecca P.A.-C) (16:03 Tamiko R.N.) ORDER SHEET NOTES: [Electronically signed by Cindy Kearns R.N. (19:10 09/30/2016)] [Electronically signed by Maru ThomasATre-Link (19:25 09/30/2016)] [Electronically locked/signed by Cindy Kearns R.N. (19:10 09/30/2016)]
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
--- NOTE | 2016-09-30 17:44 | ED ORDER SUMMARY ---
..... Patient: SANA LITTLE OrderSheet [facility] VisitID: [id number] [place] [address] 76y, M Registration Date/Time: 09/30/2016 ORDER SHEET Weight: 45.3 kg (stated) Allergies: Antabuse GENERAL ORDERS: CBC w Diff Urgent (15:42 09/30/2016 EKoroleva P.A.-C) (Ack 15:43 KHoerner) (15:57 SRoberts R.N.) CMP Urgent (15:42 09/30/2016 EKoroleva P.A.-C) (Ack 15:43 KHoerner) (15:57 SRoberts R.N.) UA-Culture if indicated Urgent (15:42 09/30/2016 EKoroleva P.A.-C) (Ack 15:43 KHoerner) (Cancelled: Patient Bouakeiqgae22:54 SRoberts R.N.) Lipase Urgent (15:42 09/30/2016 EKoroleva P.A.-C) (Ack 15:43 KHoerner) (15:57 SRoberts R.N.) Stool for C. Difficile Urgent (16:44 09/30/2016 EKoroleva P.A.-C) (Ack 16:45 KHoerner) (Cancelled: Unable to Yhoazfh81:54 SRoberts R.N.) Stool WBC Urgent (16:44 09/30/2016 EKoroleva P.A.-C) (Ack 16:45 KHoerner) (Cancelled: Unable to Gujpfnt97:55 SRoberts R.N.) Culture, Stool Urgent (16:44 09/30/2016 EKoroleva P.A.-C) (Ack 16:45 KHoerner) (Cancelled: Unable to Dzkcspm44:55 SRoberts R.N.) Ethyl Alcohol Urgent (17:07 09/30/2016 EKoroleva P.A.-C) (Ack 17:10 KHoerner) (17:10 KHoerner) MEDICATION ORDERS: IV FLUIDS: IV NS : initial bolus 1000 mL (1000 mL/hr), then 1000 mL/hr for X1 (NOW); Jones (15:42 09/30/2016 EKtaco P.A.-C) (15:58 Tamiko R.N.) Dilaudid IV 1 mg (HIGH ALERT MEDICATION, NOW) (15:43 09/30/2016 Rebecca P.A.-C) (16:03 Tamiko R.N.) ORDER SHEET NOTES: [Electronically signed by Cindy Kearns R.N. (19:10 09/30/2016)] [Electronically signed by Maru ThomasATre-Link (19:25 09/30/2016)] [Electronically locked/signed by Cindy Kearns R.N. (19:10 09/30/2016)]
--- NOTE | 2016-09-30 19:25 | ED MAR SUMMARY ---
..... Medication Administration Record [facility] [address] [place] [address] Patient: SANA LITTLE Visit ID: [id number] 76y, M Weight: 45.3 kg Height/Length: 76 in BMI: 12.2 ALLERGIES: Antabuse Start 15:53 09/30/2016 Shala Granado R.N., Stop 18:30 09/30/2016 Shala Granado R.N. Medication Administered: IV NS (SALINE), Dose: IV Fluids over 1 hour(s), Rate: 1000 mL/hr, Dispensed: 1000 mL bag, Site: #1 right forearm. Medication Ordered: IV NS : initial bolus 1000 mL (1000 mL/hr), then 1000 mL/hr for X1 (NOW); Jones. Given 16:03 09/30/2016 Shala Granado R.N. Medication Administered: DILAUDID [IVP] (HYDROMORPHONE HCL PF), Dose: 1 mg IVP over 1 minute(s), Site: #1 right forearm. Medication Ordered: Dilaudid IV 1 mg (HIGH ALERT MEDICATION, NOW).
--- NOTE | 2016-09-30 19:25 | ED MED RECONCILIATION SUMMARY ---
Patient: SIDNEY SANA Medication Reconciliation Report [facility] VisitID: [id number] [place] [address] 76y, M Registration Date/Time: 09/30/2016 Weight: 45.3 kg Height/Length: 76 in. BMI: 12.2 ALLERGIES: Antabuse The patient's Home Medications are listed below: THE FOLLOWING MEDICATIONS NEED TO BE RECONCILED: Levothyroxine Sodium Oral Montelukast Sodium Oral Morphine Sulfate 15mg extended release Omeprazole Oral OxyCODONE HCl Oral 10 mg Tamsulosin HCl Oral The source(s) of the original Home Medication information: other The following Medications were given to the patient in the Emergency Department: IV NS IV Fluids bolus 0, then 1000 mL/hr, administered: 09/30/2016 3:53:00 PM Dilaudid [IVP] IVP 1 mg, administered: 09/30/2016 4:03:00 PM The following Medications were prescribed to the patient: None.
--- NOTE | 2016-09-30 19:25 | ED MAR SUMMARY ---
..... Medication Administration Record [facility] [address] [place] [address] Patient: SANA LITTLE Visit ID: [id number] 76y, M Weight: 45.3 kg Height/Length: 76 in BMI: 12.2 ALLERGIES: Antabuse Start 15:53 09/30/2016 Shala Granado R.N., Stop 18:30 09/30/2016 Shala Granado R.N. Medication Administered: IV NS (SALINE), Dose: IV Fluids over 1 hour(s), Rate: 1000 mL/hr, Dispensed: 1000 mL bag, Site: #1 right forearm. Medication Ordered: IV NS : initial bolus 1000 mL (1000 mL/hr), then 1000 mL/hr for X1 (NOW); Jones. Given 16:03 09/30/2016 Shala Granado R.N. Medication Administered: DILAUDID [IVP] (HYDROMORPHONE HCL PF), Dose: 1 mg IVP over 1 minute(s), Site: #1 right forearm. Medication Ordered: Dilaudid IV 1 mg (HIGH ALERT MEDICATION, NOW).
--- NOTE | 2016-09-30 19:25 | ED DISCHARGE INSTRUCTIONS ---
Patient: SANA LITTLE General Instructions [facility] VisitID: [id number] [place] [address] 76y, M Registration Date/Time: 09/30/2016 Diarrhea INSTRUCTIONS Drink plenty of fluids. Follow-up: Follow up with your doctor Tuesday. ADDITIONAL INFORMATION Diarrhea, Uncertain Cause (Adult, Report Pending) Diarrhea has several possible causes. Commonstomach fluis caused by a virus. Food poisoning, bacteria or parasites are other causes for diarrhea. Only diarrhea caused by bacteria or parasites requires treatment with an antibiotic. Diarrhea from a virus or food poisoning improves with simple home treatment. A stool sample is needed to make the diagnosis of an infection with bacteria or parasites. Up to three stool specimens may be required to diagnose This may take up to two days to get the result. It may be necessary to wait until the stool test is complete to make the diagnosis and select the best antibiotic to prescribe. Home Care: If symptoms are severe, rest at home for the next 24 hours or until you are feeling better. You may use acetaminophen (Tylenol) or ibuprofen (Motrin, Advil) to control fever, unless another medicine was prescribed. [NOTE: If you have chronic liver or kidney disease or ever had a stomach ulcer or GI bleeding, talk with your doctor before using these medicines.] (Aspirin should never be used in anyone under 18 years of age who is ill with a fever. It may cause severe liver damage.) Avoid tobacco, caffeine and alcohol, which may worsen your symptoms. If anti-diarrhea medicine was prescribed, take this only as directed. Sometimes anti-diarrhea medicine can make your condition worse if the cause is an infectious diarrhea. Therefore, anti-diarrhea medicine should not be taken for this condition unless advised by your doctor. During The First 12-24 Hours follow the diet below: BEVERAGES: Sport drinks like Gatorade, soft drinks without caffeine; eunice alli, mineral water (plain or flavored), decaffeinated tea and coffee. SOUPS: Clear broth, consomm and bouillon DESSERTS: Plain gelatin (Jell-O), popsicles and fruit juice bars. During The Next 24 Hours you may add the following to the above: Hot cereal, plain toast, bread, rolls, crackers Plain noodles, rice, mashed potatoes, chicken noodle or rice soup Unsweetened canned fruit (avoid pineapple), bananas Limit fat intake to less than 15 grams per day by avoiding margarine, butter, oils, mayonnaise, sauces, gravies, fried foods, peanut butter, meat, poultry and fish. Limit fiber; avoid raw or cooked vegetables, fresh fruits (except bananas) and bran cereals. Limit caffeine and chocolate. No spices or seasonings except salt. During The Next 24 Hours Gradually resume a normal diet, as you feel better and your symptoms lessen. Follow Up with your doctor or as advised if you are not improving over the next two days. If you were asked to bring a specimen from home, bring the sample on the day of collection. You may call in 2 days (or as directed) for the results. Get Prompt Medical Attention if any of the following occur: Increasing abdominal pain or constant lower right abdominal pain Continued vomiting (unable to keep liquids down) Frequent diarrhea (more than 5 times a day) Blood in vomit or stool (black or red color) Reduced oral intake Dark urine, reduced urine output Weakness, dizziness, fainting Drowsiness, confusion, stiff neck or seizure Fever of 100.4F (38C) oral or higher, not better with fever medication New rash [place] Diet A bland diet is used for patients with an upset stomach. It consists of foods that are mild and easy to digest. It is better to eat small frequent meals rather than three large meals a day. BEVERAGES OK: Fruit juices, non-caffeinated teas and coffee, non-carbonated umaña AVOID: Carbonated beverage, caffeinated tea and coffee, all alcoholic beverages BREAD OK: Refined white, wheat or rye bread, avelino or soda crackers, Manuela toast, plain rolls, bagels AVOID: Whole-grain bread CEREAL OK: Refined cereals: cooked or ready to eat AVOID: Whole grain cereals and granola, or those containing bran, seeds or nuts DESSERTS OK: Peanut butter and all others except those to "avoid" AVOID: Chocolate, cocoa, coconut, popcorn, nuts, seeds, jam, marmalade FRUITS OK: Canned, cooked, frozen or fresh fruits without seeds or tough skin AVOID: Olives, skin and seeds of fruit MEATS OK: All fresh or preserved meat, fish and fowl AVOID: Any that are prepared with those spices to "avoid" CHEESE & EGGS OK: Eggs, cottage cheese, cream cheese, other cheeses AVOID: All cheeses made with those spices to "avoid" POTATOES & PASTA OK: Potato, rice, macaroni, noodles, spaghetti AVOID: None SOUPS OK: All soups without heavy seasoning AVOID: Soups made with those spices to "avoid" VEGETABLES OK: Canned, cooked, fresh or frozen mildly flavored vegetables without seeds, skins or coarse fiber AVOID: Vegetables prepared with those spices to "avoid"; skin and seeds of vegetables and those with coarse fiber SPICES OK: Salt, lemon and modoc juice, vinegar, all extracts, su, cinnamon, thyme, mace, allspice, paprika AVOID: [place] powder, cloves, pepper, seed spices, garlic, gravy pickles, highly seasoned salad dressings Clear Liquid Diet Clear liquids are any liquid that you can see through as well as those that are very easy to digest. This is used while the body is recovering from irritation or infection of the stomach or intestinal tract. It may also be used before special procedures or surgery. This diet is to be used no more than three days. You may include the following items. Adults Adults should drink a total of 23 quarts of liquid per day. It may be easier to drink small frequent servings rather than a few large ones. Liquids can include: Fruit juices.Strained orange juice or lemonade (no pulp), apple, grape and cranberry juice, clear fruit drinks, sports drinks Beverages.Sport drinks, sodas, mineral water (plain or flavored), tea, black coffee, liquid gelatin (add twice the recommended amount of water) Soups.Clear broth, consomm, bouillon Desserts.Plain gelatin, popsicles, fruit juice bars Children Over 2 years old The following liquids are acceptable for children over age 2: Fruit juices.Strained orange juice or lemonade (no pulp), apple, grape and cranberry juice, clear fruit drinks Beverages. Sports drinks, sodas, mineral water (plain or flavored), tea, liquid gelatin (add twice the recommended amount of water) Soups. Clear broth, consomm, bouillon Desserts. Plain gelatin, popsicles, fruit juice bars Children under 2 years old Oral rehydration fluids such are available at drug stores and most grocery stores without a prescription. You have been given the following additional information: Diarrhea, Unk Cause (Adult) Report Pendg Diet, [place] (Adult) Diet, Clear Liquid (Electronically signed by Maru Thomas P.A.-C 09/30/2016 19:25)
--- NOTE | 2016-09-30 19:25 | ED MED RECONCILIATION SUMMARY ---
Patient: SIDNEY SANA Medication Reconciliation Report [facility] VisitID: [id number] [place] [address] 76y, M Registration Date/Time: 09/30/2016 Weight: 45.3 kg Height/Length: 76 in. BMI: 12.2 ALLERGIES: Antabuse The patient's Home Medications are listed below: THE FOLLOWING MEDICATIONS NEED TO BE RECONCILED: Levothyroxine Sodium Oral Montelukast Sodium Oral Morphine Sulfate 15mg extended release Omeprazole Oral OxyCODONE HCl Oral 10 mg Tamsulosin HCl Oral The source(s) of the original Home Medication information: other The following Medications were given to the patient in the Emergency Department: IV NS IV Fluids bolus 0, then 1000 mL/hr, administered: 09/30/2016 3:53:00 PM Dilaudid [IVP] IVP 1 mg, administered: 09/30/2016 4:03:00 PM The following Medications were prescribed to the patient: None.
== END 2016-09-30 18:40 | disposition home or self-care (01) ==
LOC: ED SRH 15:18
DX: R19.7 Diarrhea, unspecified (principal); I10 Essential (primary) hypertension; F17.210 Nicotine dependence, cigarettes, uncomplicated; Z79.899 Other long term (current) drug therapy
CPT/HCPCS: 90100; 92010; 92235; 95059